=== PATIENT | female | born 1955 | race Caucasian/White ===

== ENCOUNTER → 2018-05-25 | Outpatient (CLI) | payer BC ==
[~2018-05-25] MED LIST: CEPH500 PO; CIPR500 PO; CYCL0.05OP; Cipro500 MG PO; ESTRTP VAG; FISH1000 PO; FURO40 PO; Flagyl500 MG PO; HYDACE5 PO; HYDR1TAB94 PO; HYDSUL200 PO; Ipratropium Bro15 ML; LEVFLO500 PO; LOSA50 PO; METO100 PO; NEBI10 PO; NEBI5 PO; NYST100SU PO; Norco 5-325 Ta1 EACH PO; OMEP40CA12 PO; ONDA4ODT MM; Omeprazole20 M1 PO; PILO5 PO; POTCHL20ER PO; PRAV20 PO; PRED10 PO; Prilosec Otc20 MG PO; RANI150 PO; SACC250C PO; SPIR25 PO; Synthroid100 MCG; TERA5 PO; TRAZ150T57 PO; VALS80 PO; VICODIN 5-3001 EACH PO; Zofran4 MG PO; Zofran8 MG PO
[2018-05-27 14:12] LABS: HPV 16 Negative (Negative); HPV 18 Negative (Negative); HPV OTHER HR TYPES Negative (Negative)
== END | disposition home or self-care (01) ==
LOC: LAB SHORT 13:33 → LAB 13:33
PROVIDERS: Obstetrics & Gynecology
DX: Z01.419 Encounter for gynecological examination (general) (routine) without abnormal findings (principal)
CPT/HCPCS: 87624; G0123

== ENCOUNTER 2018-12-09 16:00 | Emergency (ER) | payer BC ==
[~2018-12-09] VITALS: Ht 160 cm; Wt 233.0 kg
[~2018-12-09 16:00] MED LIST changes: +LEVSOD100 PO; -RANI150 PO; -Synthroid100 MCG; +Zantac150 MG PO
[2018-12-09 17:11] LABS: BASOPHILS ABSOLUTE AUTO 0.04 K/mm3 (0.00-0.23); BASOPHILS PERCENT AUTO 1 % (0-2); EOSINOPHILS ABSOLUTE AUTO 0.02 K/mm3 (0.00-0.68); EOSINOPHILS PERCENT AUTO 0 % (0-6); Hematocrit 41.7 % (33.0-51.0); Hemoglobin 13.6 g/dL (11.5-16.0); IMMATURE GRAN ABSOLUTE AUTO 0.02 K/mm3 (0.00-0.10); IMMATURE GRAN PERCENT AUTO 0 % (0-1); LYMPHOCYTES ABSOLUTE AUTO 0.96 K/mm3 (0.84-5.20); LYMPHOCYTES PERCENT AUTO 11 % (21-46); MONOCYTES ABSOLUTE AUTO 0.36 K/mm3 (0.16-1.47); MONOCYTES PERCENT AUTO 4 % (4-13); Mean Corpuscular HGB 31.9 pg (26.0-34.0); Mean Corpuscular HGB Conc 32.6 g/dL (31.5-36.5); Mean Corpuscular Volume 98 fL (80-100); Mean Platelet Volume 10.6 fL (9.1-12.4); NEUTROPHILS ABSOLUTE AUTO 7.38 K/mm3 (1.96-9.15); NEUTROPHILS PERCENT AUTO 84 % (41-73); Platelet Count 249 K/mm3 (150-400); RDW Coefficient Variation 12.1 % (11.7-14.2); RDW Standard Deviation 44.3 fL (35.1-46.3); Red Blood Cell Count 4.26 M/mm3 (3.80-5.20); White Blood Cell Count 8.78 K/mm3 (4.00-11.30)
[2018-12-09 17:40] LABS: Albumin, Blood 3.8 g/dL (3.4-5.0); Albumin/Globulin Ratio 1.2 (0.8-1.8); Bilirubin, Total 0.2 mg/dL (0.1-1.0); Bun/Creatinine Ratio 17.6 (12.0-20.0); Creatinine, Blood 1.02 mg/dL (0.40-1.00); Globulin, Blood 3.3 g/dL (2.2-4.0); Potassium, Blood 4.3 mmol/L (3.5-5.5); Total Protein, Blood 7.1 g/dL (6.4-8.2)
[2018-12-09] MEDS ORDERED: HYDSUL200 PO (19:50)
[2018-12-09] MEDS ORDERED: Prilosec Otc20 MG PO (19:51)
[2018-12-09] MEDS ORDERED: Spironolactone25 MG PO (19:53)
[2018-12-09] MEDS ORDERED: Norco 5-325 Ta1 EACH PO (19:53)
[2018-12-09] MEDS ORDERED: NEBI10 PO (19:54)
[2018-12-09] MEDS ORDERED: IRBE150 PO (19:56)
[2018-12-09] MEDS ORDERED: THERA1 EACH PO (19:57)
[2018-12-09] MEDS ORDERED: VITAMIN D-32000 UNIT PO (19:57)
[2018-12-09] MEDS ORDERED: BIOTIN2500 MCG PO (19:57)
== END 2018-12-09 21:00 | disposition home or self-care (01) ==
LOC: ER 16:00
PROVIDERS: Physician Assistant
DX: R51 Headache (principal); I10 Essential (primary) hypertension; Z88.6 Allergy status to analgesic agent; Z88.1 Allergy status to other antibiotic agents; Z88.5 Allergy status to narcotic agent; Z88.8 Allergy status to other drugs, medicaments and biological substances; Z79.52 Long term (current) use of systemic steroids; Z79.899 Other long term (current) drug therapy
CPT/HCPCS: 36415; 70450; 80053; 85025; 96374; 96375; 99284-25; J1200; J1885; J2765

== ENCOUNTER 2018-12-17 11:46 | Emergency (ER) | payer BC ==
[~2018-12-17] VITALS: Ht 160 cm; Wt 104.3 kg
[~2018-12-17 11:46] MED LIST changes: +BIOTIN2500 MCG PO; +IRBE150 PO; +Spironolactone25 MG PO; +THERA1 EACH PO; +VITAMIN D-32000 UNIT PO
== END 2018-12-17 16:00 | disposition home or self-care (01) ==
LOC: ER 11:46
DX: R51 Headache (principal); Z88.6 Allergy status to analgesic agent; Z88.8 Allergy status to other drugs, medicaments and biological substances; Z88.1 Allergy status to other antibiotic agents; Z88.5 Allergy status to narcotic agent; Z79.899 Other long term (current) drug therapy; Z79.52 Long term (current) use of systemic steroids; I10 Essential (primary) hypertension
CPT/HCPCS: 70487; 70496; 82565; 99284-25; Q9967

== ENCOUNTER 2019-01-14 15:31 | Emergency (ER) | payer BC ==
[~2019-01-14] VITALS: Ht 160 cm; Wt 104.3 kg
[2019-01-14] MEDS ORDERED: DIVIGEL1 EACH TD (15:48)
[2019-01-14] MEDS ORDERED: PANT40 PO (15:49)
[2019-01-14 16:01] LABS: BASOPHILS ABSOLUTE AUTO 0.03 K/mm3 (0.00-0.23); BASOPHILS PERCENT AUTO 0 % (0-2); EOSINOPHILS ABSOLUTE AUTO 0.07 K/mm3 (0.00-0.68); EOSINOPHILS PERCENT AUTO 1 % (0-6); Hemoglobin 13.4 g/dL (11.5-16.0); IMMATURE GRAN ABSOLUTE AUTO 0.05 K/mm3 (0.00-0.10); IMMATURE GRAN PERCENT AUTO 1 % (0-1); LYMPHOCYTES ABSOLUTE AUTO 1.86 K/mm3 (0.84-5.20); LYMPHOCYTES PERCENT AUTO 21 % (21-46); MONOCYTES ABSOLUTE AUTO 0.79 K/mm3 (0.16-1.47); MONOCYTES PERCENT AUTO 9 % (4-13); Mean Corpuscular HGB 32.3 pg (26.0-34.0); Mean Corpuscular HGB Conc 32.7 g/dL (31.5-36.5); Mean Corpuscular Volume 99 fL (80-100); Mean Platelet Volume 11.1 fL (9.1-12.4); NEUTROPHILS ABSOLUTE AUTO 6.11 K/mm3 (1.96-9.15); NEUTROPHILS PERCENT AUTO 69 % (41-73); Platelet Count 221 K/mm3 (150-400); RDW Coefficient Variation 11.9 % (11.7-14.2); RDW Standard Deviation 43.2 fL (35.1-46.3); Red Blood Cell Count 4.15 M/mm3 (3.80-5.20); White Blood Cell Count 8.91 K/mm3 (4.00-11.30)
[2019-01-14 16:18] LABS: Alanine Aminotransfer (ALT/SGP 41 U/L (12-78); Albumin, Blood 3.4 g/dL (3.4-5.0); Alk Phos 92 U/L (50-136); Anion Gap 5 mmol/L (6-16); Aspartate Aminotrans (AST/SGOT 24 U/L (12-37); Bilirubin, Total 0.2 mg/dL (0.1-1.0); Blood Urea Nitrogen 17 mg/dL (8-24); Bun/Creatinine Ratio 18.9 (12.0-20.0); CO2, Blood 32 mmol/L (21-32); Calcium, Blood 8.4 mg/dL (8.5-10.1); Chloride, Blood 99 mmol/L (98-108); Globulin, Blood 3.4 g/dL (2.2-4.0); Glomerular Filtration Rate >60 (60-); Glucose, Blood 137 mg/dL (70-99); Potassium, Blood 3.9 mmol/L (3.5-5.5); Sodium, Blood 136 mmol/L (136-145); Total Protein, Blood 6.8 g/dL (6.4-8.2); Troponin I <0.015 ng/mL (0.000-0.040)
[2019-01-14] MEDS ORDERED: Bactrim Ds Tab1 EACH PO (19:20)
== END 2019-01-14 19:36 | disposition home or self-care (01) ==
LOC: ER 15:31
PROVIDERS: Physician Assistant
DX: J18.1 Lobar pneumonia, unspecified organism (principal); R07.2 Precordial pain; R11.2 Nausea with vomiting, unspecified; I10 Essential (primary) hypertension; Z88.8 Allergy status to other drugs, medicaments and biological substances; Z88.1 Allergy status to other antibiotic agents; Z88.5 Allergy status to narcotic agent; Z79.52 Long term (current) use of systemic steroids; Z79.899 Other long term (current) drug therapy
CPT/HCPCS: 36415; 71046; 80053; 83690; 84484; 85025; 93005; 93010; 96361; 96374; 96375; 99285-25; J1200; J1885; J2405; J2765; J7030

== ENCOUNTER 2019-09-30 16:54 | Inpatient (IN) | payer BC ==
[~2019-09-30] VITALS: Ht 160 cm; Wt 100.2 kg
[~2019-09-30 16:54] MED LIST changes: -BIOTIN5 MG PO; -CALCIUM 600-D31 EACH PO; -FURO40 PO; -Gummi Bear Mul1 EACH PO; -IRBE150 PO; -Ipratropium Bro15 ML; -LEVSOD100 PO; -LOPE2C PO; -PANT40 PO; -POTCHL20ER PO; -Prednisone10 MG PO; -Spironolactone25 MG PO; -TRAZ150T57 PO
[2019-09-30 18:04] LABS: Source, Urine Clean Catch
[2019-09-30 18:09] LABS: Bilirubin, Urine Neg (Neg); Blood, Urine 2+ (Neg); Glucose Qualitative, Urine Neg (Neg); Ketones, Urine 3+ (Neg); Leukocyte Esterase, Urine Neg (Neg); Nitrite, Urine Neg (Neg); Protein, Urine 1+ (Neg); Urobilinogen, Urine 2+ (Normal)
[2019-09-30 18:20] LABS: Appearance, Urine Hazy (Clear); Color, Urine Amber (P-Yellow)
[2019-09-30 18:22] LABS: Bacteria Few /hpf; Red Blood Cells, Urine 0-2 /hpf (0-2); Squamous Epithelial Cells Mod /hpf (Few); White Blood Cells, Urine 0-2 /hpf (0-5)
[2019-09-30] MEDS ORDERED: Norco 5-325 Ta1 EACH PO (19:01)
[2019-09-30] MEDS ORDERED: HYDSUL200 PO (19:03)
[2019-09-30] MEDS ORDERED: Prednisone10 MG PO (19:03)
[2019-09-30] MEDS ORDERED: TRAZ150T57 PO (19:03)
[2019-09-30] MEDS ORDERED: LEVSOD100 PO (19:03)
[2019-09-30] MEDS ORDERED: IRBE150 PO (19:05)
[2019-09-30] MEDS ORDERED: PANT40 PO (19:05)
[2019-09-30] MEDS ORDERED: Ipratropium Bro15 ML (19:08)
[2019-09-30] MEDS ORDERED: POTCHL20ER PO (19:08)
[2019-09-30] MEDS ORDERED: Spironolactone25 MG PO (19:09)
[2019-09-30] MEDS ORDERED: FURO40 PO (19:25)
[2019-09-30] MEDS ORDERED: NEBI10 PO (19:26)
[2019-09-30] MEDS ORDERED: Gummi Bear Mul1 EACH PO (19:27)
[2019-09-30] MEDS ORDERED: CALCIUM 600-D31 EACH PO (19:32)
[2019-09-30] MEDS ORDERED: LOPE2C PO (19:34)
[2019-09-30] MEDS ORDERED: BIOTIN5 MG PO (19:36)
[2019-10-01 05:02] LABS: BASOPHILS ABSOLUTE AUTO 0.03 K/mm3 (0.00-0.23); BASOPHILS PERCENT AUTO 0 % (0-2); EOSINOPHILS ABSOLUTE AUTO 0.06 K/mm3 (0.00-0.68); EOSINOPHILS PERCENT AUTO 1 % (0-6); Hematocrit 35.8 % (33.0-51.0); Hemoglobin 11.2 g/dL (11.5-16.0); IMMATURE GRAN ABSOLUTE AUTO 0.04 K/mm3 (0.00-0.10); IMMATURE GRAN PERCENT AUTO 0 % (0-1); LYMPHOCYTES ABSOLUTE AUTO 1.31 K/mm3 (0.84-5.20); LYMPHOCYTES PERCENT AUTO 12 % (21-46); MONOCYTES ABSOLUTE AUTO 1.23 K/mm3 (0.16-1.47); MONOCYTES PERCENT AUTO 12 % (4-13); Mean Corpuscular HGB 30.5 pg (26.0-34.0); Mean Corpuscular HGB Conc 31.3 g/dL (31.5-36.5); Mean Corpuscular Volume 98 fL (80-100); Mean Platelet Volume 11.3 fL (9.1-12.4); NEUTROPHILS ABSOLUTE AUTO 7.97 K/mm3 (1.96-9.15); NEUTROPHILS PERCENT AUTO 75 % (41-73); Platelet Count 217 K/mm3 (150-400); RDW Coefficient Variation 12.8 % (11.7-14.2); RDW Standard Deviation 46.4 fL (35.1-46.3); Red Blood Cell Count 3.67 M/mm3 (3.80-5.20); White Blood Cell Count 10.64 K/mm3 (4.00-11.30)
[2019-10-01 05:23] LABS: Anion Gap 7 mmol/L (6-16); Blood Urea Nitrogen 10 mg/dL (8-24); CO2, Blood 29 mmol/L (21-32); Calcium, Blood 8.1 mg/dL (8.5-10.1); Chloride, Blood 103 mmol/L (98-108); Creatinine, Blood 0.91 mg/dL (0.40-1.00); Glomerular Filtration Rate >60 (60-); Glucose, Blood 86 mg/dL (70-99); Potassium, Blood 3.7 mmol/L (3.5-5.5); Sodium, Blood 139 mmol/L (136-145)
--- NOTE | 2019-10-01 06:04 | NUR ---
SHIFT SUMMARY RECIEVED REPORT FROM TING CHEN, ED @ 2027. ARRIVED TO FLOOR VIA WHEELCHAIR @ 2042, NO ASSISTANCE NEEDED WITH TRANSFER/AMBULATION. ORIENTED TO ROOM AND CALL SYSTEM. A/O, ABLE TO MAKE NEEDS KNOWN. COOPERATIVE WITH CARE. ANSWERS QUESTIONS APPROPRIATELY. C/O PAIN RATED 8/10 TO LLQ; MEDICATED PER EMAR. STATES MINIMAL RELIEF WITH PAIN MEDICATIONS. IV FLUIDS STARTED TO LAC WITHOUT COMPLICATION OVERNIGHT; THIS AM FELT TENDERNESS. NEW 20G IV TO OUTER [place]. APPEARED TO REST OFF AN ON. CONT. BIOX PLACE; RT ALSO PLACED ON 2L VIA NC R/T DESATURATION WHILE SLEEPING. PATIENT STATED WAS TO HAVE A SLEEP STUDY DONE, BUT HAS NOT HAD TIME TO COMPLETE. REMAINED NPO. NO ACUTE CHANGES NOTED OVERNIGHT. BED IN LOWEST POSITION. CALL LIGHT AND BELONGINGS WITHIN REACH. WCTM. REPORT TO BRENNA CHEN.
--- NOTE | 2019-10-01 19:21 | NUR ---
SHIFT SUMMARY: NO ACUTE CHANGES TO REPORT THIS SHIFT. PT A&O; CALM AND COOPERATIVE WITH CARE; INDEPENDENT IN ROOM. MEDICATED FOR LLQ PAIN PER EMAR. MEDICATED FOR NAUSEA X1 THIS SHIFT. SURGICAL CONSULT (DR RAMIREZ) THIS SHIFT; DIET ADVANCED; NO SURGERY PLANNED. REHYDRATION & IV ABX CONTINUING. REPORT GIVEN TO ONCOMING RN.
--- NOTE | 2019-10-02 03:58 | NUR ---
SHIFT SUMMARY A/O, ABLE TO MAKE NEEDS KNOWN. COOPERATIVE WITH CARE. CALLS AND ANSWERS QUESTIONS APPROPRIATELY. C/O PAIN/DISCOMFORT TO LLQ; MEDICATED PER EMAR. INDEPENDENT TO ROOM AND HALLWAYS. APPEARED TO REST MUCH MORE THIS SHIFT THAN LAST. CONT BIOX AND O2 REMAINED IN PLACE NO DESATURATION NOTED. TOLERATING THIN LIQUIDS WITH ICE CHIPS OK. STATES CURIOUS WHEN HOME PO MEDICATIONS WILL BE AVAILABLE TO HER, SPECIFICALLY HTN MEDICATIONS; STATES SHE WILL SPEAK TO ATTENDING PHYSICIAN TODAY. NO ACUTE CHANGES NOTED OVERNIGHT. BED REMAINED IN LOWEST POSITION. CALL LIGHT AND BELONGINGS WITHIN REACH. WCTM. REPORT TO ONCOMING RN.
[2019-10-02 05:10] LABS: BASOPHILS ABSOLUTE AUTO 0.03 K/mm3 (0.00-0.23); BASOPHILS PERCENT AUTO 0 % (0-2); EOSINOPHILS ABSOLUTE AUTO 0.13 K/mm3 (0.00-0.68); EOSINOPHILS PERCENT AUTO 2 % (0-6); Hematocrit 37.7 % (33.0-51.0); Hemoglobin 11.9 g/dL (11.5-16.0); IMMATURE GRAN ABSOLUTE AUTO 0.03 K/mm3 (0.00-0.10); IMMATURE GRAN PERCENT AUTO 0 % (0-1); LYMPHOCYTES ABSOLUTE AUTO 1.52 K/mm3 (0.84-5.20); LYMPHOCYTES PERCENT AUTO 18 % (21-46); MONOCYTES ABSOLUTE AUTO 0.94 K/mm3 (0.16-1.47); MONOCYTES PERCENT AUTO 11 % (4-13); Mean Corpuscular HGB 30.9 pg (26.0-34.0); Mean Corpuscular HGB Conc 31.6 g/dL (31.5-36.5); Mean Corpuscular Volume 98 fL (80-100); Mean Platelet Volume 10.9 fL (9.1-12.4); NEUTROPHILS ABSOLUTE AUTO 5.82 K/mm3 (1.96-9.15); NEUTROPHILS PERCENT AUTO 69 % (41-73); Platelet Count 247 K/mm3 (150-400); RDW Coefficient Variation 12.4 % (11.7-14.2); Red Blood Cell Count 3.85 M/mm3 (3.80-5.20); White Blood Cell Count 8.47 K/mm3 (4.00-11.30)
[2019-10-02 05:30] LABS: Albumin, Blood 2.8 g/dL (3.4-5.0); Anion Gap 7 mmol/L (6-16); Blood Urea Nitrogen 11 mg/dL (8-24); Bun/Creatinine Ratio 11.9 (12.0-20.0); CO2, Blood 30 mmol/L (21-32); Calcium, Blood 8.3 mg/dL (8.5-10.1); Chloride, Blood 103 mmol/L (98-108); Creatinine, Blood 0.93 mg/dL (0.40-1.00); Glomerular Filtration Rate >60 (60-); Glucose, Blood 93 mg/dL (70-99); Phosphorus, Blood 3.2 mg/dL (2.5-4.9); Potassium, Blood 3.7 mmol/L (3.5-5.5); Sodium, Blood 140 mmol/L (136-145)
--- NOTE | 2019-10-02 16:04 | NUR ---
Provided theraputic listening, gentle counseling program leader and prayer to Sharon. She expressed appreciation. I will continue to provide emotional/spiritual support in coming days.
--- NOTE | 2019-10-02 17:40 | NUR ---
SUMMARY PT SITTING UP IN BED WATCHING TV, PT HAS BEEN PLEASANT AND COOPERATIVE WITH CARE, INDEPENDENT IN THE ROOM, PT MED PER EMAR FOR PAIN AND NAUSEA, CONT BIOX IN PLACE AND OXYGEN PRN, BOWEL SOUNDS HYPERACTIVE AND PT WITH POOR APPETITE, VSS, WILL CONT TO MONITOR
--- NOTE | 2019-10-03 04:00 | NUR ---
SHIFT SUMMARY PT HAS HAD NO ACUTE CHANGES THIS SHIFT, MEDICATED PER MAR FOR PAIN & NAUSEA, PT HAS BEEN AMBULATING IN HALLWAY INDEP, SLEEPING AT THIS TIME, CALL LIGHT IN REACH, WILL CONT TO MONITOR UNTIL REPORT GIVEN TO DAY RN.
[2019-10-03 08:08] LABS: BASOPHILS ABSOLUTE AUTO 0.04 K/mm3 (0.00-0.23); BASOPHILS PERCENT AUTO 1 % (0-2); EOSINOPHILS ABSOLUTE AUTO 0.18 K/mm3 (0.00-0.68); EOSINOPHILS PERCENT AUTO 2 % (0-6); Hematocrit 34.9 % (33.0-51.0); IMMATURE GRAN ABSOLUTE AUTO 0.02 K/mm3 (0.00-0.10); IMMATURE GRAN PERCENT AUTO 0 % (0-1); LYMPHOCYTES ABSOLUTE AUTO 1.28 K/mm3 (0.84-5.20); LYMPHOCYTES PERCENT AUTO 16 % (21-46); MONOCYTES ABSOLUTE AUTO 0.92 K/mm3 (0.16-1.47); MONOCYTES PERCENT AUTO 12 % (4-13); Mean Corpuscular HGB Conc 31.5 g/dL (31.5-36.5); Mean Corpuscular Volume 98 fL (80-100); Mean Platelet Volume 10.9 fL (9.1-12.4); NEUTROPHILS ABSOLUTE AUTO 5.56 K/mm3 (1.96-9.15); NEUTROPHILS PERCENT AUTO 69 % (41-73); Platelet Count 243 K/mm3 (150-400); RDW Coefficient Variation 12.3 % (11.7-14.2); RDW Standard Deviation 44.9 fL (35.1-46.3); Red Blood Cell Count 3.55 M/mm3 (3.80-5.20)
[2019-10-03 08:26] LABS: Albumin, Blood 2.8 g/dL (3.4-5.0); Anion Gap 5 mmol/L (6-16); Blood Urea Nitrogen 8 mg/dL (8-24); CO2, Blood 32 mmol/L (21-32); Calcium, Blood 8.4 mg/dL (8.5-10.1); Chloride, Blood 102 mmol/L (98-108); Glomerular Filtration Rate 59 (60-); Glucose, Blood 95 mg/dL (70-99); Phosphorus, Blood 3.1 mg/dL (2.5-4.9); Potassium, Blood 3.3 mmol/L (3.5-5.5); Sodium, Blood 139 mmol/L (136-145)
--- NOTE | 2019-10-03 12:30 | NUR ---
ASSUMED CARE OF PT. INDEPENDENT IN HALLWAYS. FALLING ASLEEP WHEN HANGING ANTIBIOTIC.
--- NOTE | 2019-10-03 15:43 | NUR ---
Sharon is awaitingf scan results and admits she is anxious. Provided gentle milieu counselor, theraputic listening and emotional affirmation. I will remain available.
--- NOTE | 2019-10-03 17:36 | NUR ---
SHIFT SUMMARY PT OUT WALKING FOR SHORT TIME THIS AFTERNOON. MEDICATED FOR PAIN ONCE. TOOK A SHOWER AFTER A NAP. HAD A LRG DIARRHEA STOOL THIS AFTERNOON. REPORTS ABDOMEN REMAINS DISTENDED. TAKING SIPS OF FLUIDS WHICH DR. RAMIREZ IS AWARE ACCORDING TO PT.
[2019-10-04 05:01] LABS: BASOPHILS ABSOLUTE AUTO 0.03 K/mm3 (0.00-0.23); BASOPHILS PERCENT AUTO 0 % (0-2); EOSINOPHILS ABSOLUTE AUTO 0.18 K/mm3 (0.00-0.68); EOSINOPHILS PERCENT AUTO 3 % (0-6); Hematocrit 33.6 % (33.0-51.0); Hemoglobin 10.7 g/dL (11.5-16.0); IMMATURE GRAN ABSOLUTE AUTO 0.01 K/mm3 (0.00-0.10); IMMATURE GRAN PERCENT AUTO 0 % (0-1); LYMPHOCYTES PERCENT AUTO 20 % (21-46); MONOCYTES ABSOLUTE AUTO 1.05 K/mm3 (0.16-1.47); MONOCYTES PERCENT AUTO 15 % (4-13); Mean Corpuscular HGB Conc 31.8 g/dL (31.5-36.5); Mean Corpuscular Volume 97 fL (80-100); Mean Platelet Volume 11.2 fL (9.1-12.4); NEUTROPHILS ABSOLUTE AUTO 4.38 K/mm3 (1.96-9.15); NEUTROPHILS PERCENT AUTO 62 % (41-73); Platelet Count 228 K/mm3 (150-400); RDW Coefficient Variation 12.4 % (11.7-14.2); RDW Standard Deviation 44.6 fL (35.1-46.3); Red Blood Cell Count 3.45 M/mm3 (3.80-5.20); White Blood Cell Count 7.05 K/mm3 (4.00-11.30)
[2019-10-04 05:17] LABS: Albumin, Blood 2.7 g/dL (3.4-5.0); Anion Gap 6 mmol/L (6-16); Blood Urea Nitrogen 7 mg/dL (8-24); Bun/Creatinine Ratio 7.2 (12.0-20.0); CO2, Blood 32 mmol/L (21-32); Calcium, Blood 8.2 mg/dL (8.5-10.1); Chloride, Blood 103 mmol/L (98-108); Creatinine, Blood 0.98 mg/dL (0.40-1.00); Glomerular Filtration Rate >60 (60-); Glucose, Blood 90 mg/dL (70-99); Phosphorus, Blood 3.6 mg/dL (2.5-4.9); Potassium, Blood 3.6 mmol/L (3.5-5.5); Sodium, Blood 141 mmol/L (136-145)
--- NOTE | 2019-10-04 05:35 | NUR ---
SHIFT SUMMARY PT IS A 64 Y/O FEMALE, ADMITTED FOR DIVERTICULITIS. SHE IS A&O X 4, INDEPENDENT IN THE ROOM. SHE WAS MEDICATED X2 FOR PAIN WITH PRN IV DILAUDID. NO COMPLAINTS OF NAUSEA OR SOB. PT REMAINED ON 2L O2 VIA NC WHILE SLEEPING, AND SATS REMAINED > 90% ON O2. BP WAS ELEVATED AT START OF SHIFT AT 180/99, AND CAME DOWN TO 161/82 WITH SCHEDULED HS BP MED. AM BP WAS ALSO SLIGHTLY ELEVATED AT 174/90. ALL OTHER VITALS STABLE. PT SLEPT WELL THROUGH THE NIGHT. PT RECEIVING PO NYSTATIN FOR ORAL THRUSH. NO OTHER ACUTE CHANGES IN PT CONDITION NOTED. WILL CONTINUE TO MONITOR AND TREAT PER EMAR UNTIL HAND OFF TO DAY SHIFT RN.
--- NOTE | 2019-10-04 16:28 | NUR ---
Provided supportive visit and prayer.
--- NOTE | 2019-10-04 19:35 | NUR ---
ASSUMED CARE RECEIVED REPORT FROM DAY RN, ASSUMED CARE OF PT. RESTING COMFORTABLY AT THIS TIME, NO S/S ACUTE DISTRESS NOTED, RESPS EVEN AND UNLABORED. DENIES NEEDS AT THIS TIME. CALL LIGHT, POSSESSIONS IN REACH, BED IN LOWEST POSITION. WILL CONTINUE TO MONITOR.
--- NOTE | 2019-10-04 19:58 | NUR ---
Shift Summary A/Ox4, pleasant and cooperative with care. Patient had an episode of heart palpitations and was diaphoretic. EKG and tele was ordered, EKG was negative and Tele showed NSR @ 60's. Patient has been moved to room 329 from [facility] to improve telemetry signal. C/O lower abdominal pain, medicated x 3 with good results. Patient has been ambulatory in hallway and independently up in room to the bathroom. It seems patient desaturates with activities despite being on oxygen down to mid 70's; however, she rebounds quickly and maintains roughly 95% when resting. No other acute concerns.
[2019-10-05 05:31] LABS: BASOPHILS ABSOLUTE AUTO 0.05 K/mm3 (0.00-0.23); BASOPHILS PERCENT AUTO 1 % (0-2); EOSINOPHILS ABSOLUTE AUTO 0.19 K/mm3 (0.00-0.68); EOSINOPHILS PERCENT AUTO 2 % (0-6); Hematocrit 36.3 % (33.0-51.0); Hemoglobin 11.4 g/dL (11.5-16.0); IMMATURE GRAN ABSOLUTE AUTO 0.02 K/mm3 (0.00-0.10); IMMATURE GRAN PERCENT AUTO 0 % (0-1); LYMPHOCYTES ABSOLUTE AUTO 1.47 K/mm3 (0.84-5.20); LYMPHOCYTES PERCENT AUTO 18 % (21-46); MONOCYTES ABSOLUTE AUTO 1.15 K/mm3 (0.16-1.47); MONOCYTES PERCENT AUTO 14 % (4-13); Mean Corpuscular HGB 30.4 pg (26.0-34.0); Mean Corpuscular HGB Conc 31.4 g/dL (31.5-36.5); Mean Corpuscular Volume 97 fL (80-100); Mean Platelet Volume 10.9 fL (9.1-12.4); NEUTROPHILS ABSOLUTE AUTO 5.33 K/mm3 (1.96-9.15); NEUTROPHILS PERCENT AUTO 65 % (41-73); Platelet Count 246 K/mm3 (150-400); RDW Standard Deviation 42.8 fL (35.1-46.3); Red Blood Cell Count 3.75 M/mm3 (3.80-5.20); White Blood Cell Count 8.21 K/mm3 (4.00-11.30)
[2019-10-05 06:00] LABS: Anion Gap 6 mmol/L (6-16); Blood Urea Nitrogen 6 mg/dL (8-24); Bun/Creatinine Ratio 7.2 (12.0-20.0); CO2, Blood 31 mmol/L (21-32); Calcium, Blood 8.4 mg/dL (8.5-10.1); Chloride, Blood 104 mmol/L (98-108); Creatinine, Blood 0.83 mg/dL (0.40-1.00); Glomerular Filtration Rate >60 (60-); Glucose, Blood 94 mg/dL (70-99); Potassium, Blood 3.1 mmol/L (3.5-5.5); Sodium, Blood 141 mmol/L (136-145)
--- NOTE | 2019-10-05 06:47 | NUR ---
[address] MEDLEY REGARDING PT'S POTASSIUM LEVEL. ORDERS RECEIVED.
--- NOTE | 2019-10-05 07:28 | NUR ---
SHIFT SUMMARY PT HAS HAD AN UNEVENTFUL NIGHT. NO FURTHER EPISODES OF CP OR DIAPHORESIS NOTED, PT SLEPT ON AND OFF T/O NIGHT. PAIN MANAGED WITH REST AND MEDS. O2 SATS STABLE ON 2L O2/NC, >92%. UP IN ROOM INDEPENDENTLY. VS STABLE. CALL LIGHT, POSSESSIONS IN REACH, BED IN LOWEST POSITION. PT HOPEFUL TO D/C HOME TODAY, IN [facility].
[2019-10-05] MEDS ORDERED: CIPR500 PO (14:03)
[2019-10-05] MEDS ORDERED: VISBIOME 112.51 EACH PO (14:03)
[2019-10-05] MEDS ORDERED: METR500 PO (14:04)
[2019-10-05] MEDS ORDERED: ONDA4ODT MM (14:04)
[2019-10-05] MEDS ORDERED: NYST100000 SS (14:05)
--- NOTE | 2019-10-05 14:24 | NUR ---
1424 PT DISCHARGED HOME VIA PERSONAL VEHICLE ACCOMPANIED AND DRIVEN BY DAUGHTER. PT ESCORTED TO ENTRANCE BY TELEMETRY RN, PT REQUESTED TO SELF AMBULATE. IV REMOVED. D/C INSTRUCTIONS REVIEWED WITH PT AND COPY PROVIDED. NEW RX FAXED TO [facility] PER PT REQUEST. PT CONTINUES WITH SEVERAL LOOSE STOOLS DURING THE SHIFT. NO NEW CHANGES OR CONCERNS.
== END 2019-10-05 14:23 | disposition home or self-care (01) | DRG 871 ==
LOC: ER 16:54 → MEDS 20:24 → ENPENDDIS 10-05 13:10 → MEDS 10-05 14:23
PROVIDERS: Family Medicine; Internal Medicine; Nurse Practitioner Acute Care; Physician Assistant; ADMIT Internal Medicine
DX: A41.9 Sepsis, unspecified organism (principal); J96.01 Acute respiratory failure with hypoxia; I50.31 Acute diastolic (congestive) heart failure; K57.20 Diverticulitis of large intestine with perforation and abscess without bleeding; B37.0 Candidal stomatitis; I11.0 Hypertensive heart disease with heart failure; E78.5 Hyperlipidemia, unspecified; E03.9 Hypothyroidism, unspecified; M32.9 Systemic lupus erythematosus, unspecified; M79.7 Fibromyalgia; M35.00 Sjogren syndrome, unspecified; K21.9 Gastro-esophageal reflux disease without esophagitis; D64.9 Anemia, unspecified; M06.9 Rheumatoid arthritis, unspecified; E66.9 Obesity, unspecified; Z68.39 Body mass index [BMI] 39.0-39.9, adult
CPT/HCPCS: 36415; 71046; 74177; 80048; 80069; 81001; 83605; 85025; 87040; 87493; 93005; 93010; 93306; 94762; 96365-59; 96375; 96376; 99285-25; A9270; J1170; J1940; J2405; J2543; J2765; J2920; J3480; J7050; J7120; J7512; Q9967

== ENCOUNTER → 2019-09-30 | Outpatient (CLI) | payer BC ==
[~2019-09-30] MED LIST changes: +BIOTIN5 MG PO; +Bactrim Ds Tab1 EACH PO; +CALCIUM 600-D31 EACH PO; +DIVIGEL1 EACH TD; +Gummi Bear Mul1 EACH PO; +LOPE2C PO; +PANT40 PO; -PRED10 PO; +Prednisone10 MG PO; -THERA1 EACH PO
[2019-09-30 15:25] LABS: BASOPHILS ABSOLUTE AUTO 0.02 K/mm3 (0.00-0.23); BASOPHILS PERCENT AUTO 0 % (0-2); EOSINOPHILS ABSOLUTE AUTO 0.01 K/mm3 (0.00-0.68); EOSINOPHILS PERCENT AUTO 0 % (0-6); Hematocrit 42.2 % (33.0-51.0); Hemoglobin 13.4 g/dL (11.5-16.0); IMMATURE GRAN ABSOLUTE AUTO 0.05 K/mm3 (0.00-0.10); IMMATURE GRAN PERCENT AUTO 0 % (0-1); LYMPHOCYTES ABSOLUTE AUTO 0.75 K/mm3 (0.84-5.20); LYMPHOCYTES PERCENT AUTO 5 % (21-46); MONOCYTES ABSOLUTE AUTO 1.22 K/mm3 (0.16-1.47); MONOCYTES PERCENT AUTO 8 % (4-13); Mean Corpuscular HGB 30.7 pg (26.0-34.0); Mean Corpuscular HGB Conc 31.8 g/dL (31.5-36.5); Mean Corpuscular Volume 97 fL (80-100); Mean Platelet Volume 11.6 fL (9.1-12.4); NEUTROPHILS ABSOLUTE AUTO 13.02 K/mm3 (1.96-9.15); NEUTROPHILS PERCENT AUTO 86 % (41-73); Platelet Count 268 K/mm3 (150-400); RDW Coefficient Variation 12.8 % (11.7-14.2); RDW Standard Deviation 45.9 fL (35.1-46.3); Red Blood Cell Count 4.37 M/mm3 (3.80-5.20); White Blood Cell Count 15.07 K/mm3 (4.00-11.30)
[2019-09-30 15:42] LABS: Alanine Aminotransfer (ALT/SGP 23 U/L (12-78); Albumin, Blood 3.4 g/dL (3.4-5.0); Albumin/Globulin Ratio 0.9 (0.8-1.8); Alk Phos 71 U/L (50-136); Anion Gap 6 mmol/L (6-16); Aspartate Aminotrans (AST/SGOT 15 U/L (12-37); Bilirubin, Total 0.6 mg/dL (0.1-1.0); Blood Urea Nitrogen 11 mg/dL (8-24); Bun/Creatinine Ratio 11.4 (12.0-20.0); CO2, Blood 30 mmol/L (21-32); Calcium, Blood 8.5 mg/dL (8.5-10.1); Chloride, Blood 100 mmol/L (98-108); Creatinine, Blood 0.97 mg/dL (0.40-1.00); Globulin, Blood 3.7 g/dL (2.2-4.0); Glomerular Filtration Rate >60 (60-); Glucose, Blood 112 mg/dL (70-99); Potassium, Blood 3.8 mmol/L (3.5-5.5); Sodium, Blood 136 mmol/L (136-145); Total Protein, Blood 7.1 g/dL (6.4-8.2)
== END | disposition home or self-care (01) ==
LOC: LAB 13:34 → LAB SHORT 13:34
PROVIDERS: Nurse Practitioner Family
DX: R10.9 Unspecified abdominal pain (principal)
CPT/HCPCS: 80053; 83690; 85025

== ENCOUNTER 2019-12-22 20:11 | Observation (INO) | payer OTHER, BC ==
[~2019-12-22] VITALS: Ht 160 cm; Wt 100.2 kg
[~2019-12-22 20:11] MED LIST changes: +BIOTIN5 MG PO; +CALCIUM 600-D31 EACH PO; +FURO40 PO; +Gummi Bear Mul1 EACH PO; +IRBE150 PO; +Ipratropium Bro15 ML; +LEVSOD100 PO; +LOPE2C PO; +METR500 PO; +NYST100000 SS; +PANT40 PO; +POTCHL20ER PO; +Prednisone10 MG PO; +SPIR25; +TRAZ150T57 PO; +VISBIOME 112.51 EACH PO
[2019-12-22 20:57] LABS: BASOPHILS ABSOLUTE AUTO 0.04 K/mm3 (0.00-0.23); BASOPHILS PERCENT AUTO 0 % (0-2); EOSINOPHILS ABSOLUTE AUTO 0.03 K/mm3 (0.00-0.68); EOSINOPHILS PERCENT AUTO 0 % (0-6); Hematocrit 39.8 % (33.0-51.0); Hemoglobin 12.8 g/dL (11.5-16.0); IMMATURE GRAN ABSOLUTE AUTO 0.35 K/mm3 (0.00-0.10); IMMATURE GRAN PERCENT AUTO 2 % (0-1); LYMPHOCYTES ABSOLUTE AUTO 1.95 K/mm3 (0.84-5.20); LYMPHOCYTES PERCENT AUTO 13 % (21-46); MONOCYTES ABSOLUTE AUTO 1.07 K/mm3 (0.16-1.47); MONOCYTES PERCENT AUTO 7 % (4-13); Mean Corpuscular HGB 30.5 pg (26.0-34.0); Mean Corpuscular HGB Conc 32.2 g/dL (31.5-36.5); Mean Corpuscular Volume 95 fL (80-100); Mean Platelet Volume 10.7 fL (9.1-12.4); NEUTROPHILS ABSOLUTE AUTO 12.15 K/mm3 (1.96-9.15); NEUTROPHILS PERCENT AUTO 78 % (41-73); Platelet Count 259 K/mm3 (150-400); RDW Coefficient Variation 14.1 % (11.7-14.2); RDW Standard Deviation 49.3 fL (35.1-46.3); Red Blood Cell Count 4.19 M/mm3 (3.80-5.20); White Blood Cell Count 15.59 K/mm3 (4.00-11.30)
[2019-12-22 21:23] LABS: Albumin, Blood 3.3 g/dL (3.4-5.0); Albumin/Globulin Ratio 1.1 (0.8-1.8); Bilirubin, Total 0.2 mg/dL (0.1-1.0); Bun/Creatinine Ratio 24.8 (12.0-20.0); Calcium, Blood 8.2 mg/dL (8.5-10.1); Creatinine, Blood 1.05 mg/dL (0.40-1.00); Globulin, Blood 3.1 g/dL (2.2-4.0); Potassium, Blood 3.8 mmol/L (3.5-5.5); Total Protein, Blood 6.4 g/dL (6.4-8.2)
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
[2019-12-23] MEDS ORDERED: K-TAB ER20 ME2 PO (10:08)
--- NOTE | 2019-12-23 10:15 | NUR ---
PT FITTED W/ TLSO BRACE BY YARY, TOLERATED WELL, ABLE TO SIT UP ON EDGE OF BED, REPORTS IMPROVEMENT IN BACK PAIN AFTER BRACE WAS PLACED, PT ABLE TO USE BSC, C/O SPASMS ON BACK, PT STARTED ON FLEXERIL PER DR. RAMIREZ, DENIES ANY NUMBNESS OR TINGING, STANDBY ASSIST TO THE BSC, CONT. TO MONITOR FOR ANY CHANGES.
[2019-12-23] MEDS ORDERED: FLUC150A PO (10:28)
--- NOTE | 2019-12-23 15:06 | NUR ---
OOB TO RECLINER CHAIR, WORKING WITH PHYS. TX. MEDICATED FOR PAIN PRIOR TO THERAPY, REPORTS HAVING BETTER PAIN CONTROL WITH NORCO Q4HRS PRN AND FLEXERIL.
--- NOTE | 2019-12-23 18:10 | NUR ---
REPORTS PAIN IS BETTER WITH NORCO AND FLEXERIL, AMBULATES TO THE BATHROOM WITH TLSO BRACE ON AND WALKER, TOELRATING WELL, WORKED WITH PT TODAY, DENIES ANY NUMBNESS AND TINGLING, NO ACUTE CHANGES THIS SHIFT.
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
--- NOTE | 2019-12-24 09:01 | NUR ---
OOB WITH STANDBY ASSIST, TLSO BRACE IN PLACE, PT MOVING BETTER TODAY, RATES PAIN AT 7/10 ON BACK AND R SHOULDER/CHEST AREA, REPORTS HAVING ADEQUATE PAIN CONTROL, DENIES ANY NUMBNESS OR TINGLING OR ANY NEURO CHANGES, DENIES ANY SOB, MONITOR FOR ANY CHANGES, MEDICATE FOR PAIN PRN, ENCOURAGE DEEP BREATHING AND IS USE.
[2019-12-24] MEDS ORDERED: CYCL10 PO (12:02)
[2019-12-24] MEDS ORDERED: HYDR1TAB94 PO (12:03)
--- NOTE | 2019-12-24 12:42 | NUR ---
DC'D HOME, DC INSTRUCTIONS GIVEN, VERBALIZED UNDERSTANDING, PT DC'D W/ DAUGHTER, RX'S GIVEN.
== END 2019-12-24 12:41 | disposition home or self-care (01) ==
LOC: ER 20:11 → SURS 20:12 → ER 23:21 → SURS 23:25
PROVIDERS: Emergency Medicine; ADMIT Surgery
DX: S32.029A Unspecified fracture of second lumbar vertebra, initial encounter for closed fracture (principal); S01.81XA Laceration without foreign body of other part of head, initial encounter; M32.9 Systemic lupus erythematosus, unspecified; I10 Essential (primary) hypertension; E03.9 Hypothyroidism, unspecified; M35.00 Sjogren syndrome, unspecified; M79.7 Fibromyalgia; E66.9 Obesity, unspecified; K21.9 Gastro-esophageal reflux disease without esophagitis; M06.9 Rheumatoid arthritis, unspecified; R40.2412 Glasgow coma scale score 13-15, at arrival to emergency department; V49.9XXA Car occupant (driver) (passenger) injured in unspecified traffic accident, initial encounter; Z88.6 Allergy status to analgesic agent; Z88.1 Allergy status to other antibiotic agents; Z88.5 Allergy status to narcotic agent; Z88.8 Allergy status to other drugs, medicaments and biological substances; Z68.39 Body mass index [BMI] 39.0-39.9, adult
CPT/HCPCS: 12011; 36415; 70450; 71260; 72100; 72125; 73030; 73140; 74177; 80053; 85025; 96372; 97110; 97162; 99285-25; A9270; A9270-GY; G0378; J1650; J3010; J7512; Q9967

== ENCOUNTER 2020-09-06 06:21 | Day surgery (SDC) | payer BC ==
[~2020-09-06] VITALS: Ht 160 cm; Wt 103.0 kg
[~2020-09-06 06:21] MED LIST changes: +AZIT500 PO; +Amoxicillin500 MG PO; +CYCL10 PO; +ESOMEPRAZOLE MA40 MG PO; +FLUC150A PO; +Hydroxychloroq200 MG PO; +K-TAB ER20 ME2 PO; +PRED5 PO; -SPIR25; +VISBIOME PROBIOTIC PO
[2020-09-06] MEDS ORDERED: PANTOPRAZOLE SO40 M2 PO (07:05)
[2020-09-06] MEDS ORDERED: ESOMEPRAZOLE MA40 MG PO (07:05)
[2020-09-06] MEDS ORDERED: Hydroxychloroq200 MG PO (07:05)
[2020-09-06] MEDS ORDERED: ESTRADIOL0.5 MG PO (07:06)
== END 2020-09-06 10:35 | disposition home or self-care (01) ==
LOC: ORSCSDS 06:21
PROVIDERS: Podiatrist Foot & Ankle Surgery
PROC: 0QBL0ZZ Excision of Right Tarsal, Open Approach (ICD-10-PCS; principal; 2020-09-06 07:30)
PROC: 0QBN0ZZ Excision of Right Metatarsal, Open Approach (ICD-10-PCS; principal; 2020-09-06 07:30)
PROC: 0SGM04Z Fusion of Right Metatarsal-Phalangeal Joint with Internal Fixation Device, Open Approach (ICD-10-PCS; principal; 2020-09-06 07:30)
DX: M19.071 Primary osteoarthritis, right ankle and foot (principal); M20.5X1 Other deformities of toe(s) (acquired), right foot; I10 Essential (primary) hypertension; E78.5 Hyperlipidemia, unspecified; J44.9 Chronic obstructive pulmonary disease, unspecified; E03.9 Hypothyroidism, unspecified; K21.9 Gastro-esophageal reflux disease without esophagitis; E66.01 Morbid (severe) obesity due to excess calories; Z68.41 Body mass index [BMI] 40.0-44.9, adult; Z79.899 Other long term (current) drug therapy
CPT/HCPCS: C1713; J0171; J0690; J1100; J2250; J2405; J2704; J2765; J3010; J7120

== ENCOUNTER 2020-12-16 18:39 | Emergency (ER) | payer BC, MEDICARE, OTHER ==
[~2020-12-16] VITALS: Ht 160 cm; Wt 99.8 kg
[~2020-12-16 18:39] MED LIST changes: +ESTRADIOL0.5 MG PO; +PANTOPRAZOLE SO40 M2 PO
[2020-12-16 20:18] LABS: Source, Urine Clean Catch
[2020-12-16 20:21] LABS: Appearance, Urine Clear (Clear); Bilirubin, Urine Neg (Neg); Blood, Urine 1+ (Neg); Color, Urine Yellow (P-Yellow); Glucose Qualitative, Urine Neg (Neg); Ketones, Urine Neg (Neg); Leukocyte Esterase, Urine Neg (Neg); Nitrite, Urine Neg (Neg); Protein, Urine Neg (Neg); Specific Gravity, Urine 1.025 (1.003-1.022); Urobilinogen, Urine NORM (Normal)
[2020-12-16 20:29] LABS: Bacteria Not Seen /hpf; Red Blood Cells, Urine 0-2 /hpf (0-2); Squamous Epithelial Cells Rare /hpf (Few); White Blood Cells, Urine 0-2 /hpf (0-5)
[2020-12-16 20:32] LABS: BASOPHILS ABSOLUTE AUTO 0.03 K/mm3 (0.00-0.23); BASOPHILS PERCENT AUTO 0 % (0-2); EOSINOPHILS ABSOLUTE AUTO 0.01 K/mm3 (0.00-0.68); EOSINOPHILS PERCENT AUTO 0 % (0-6); Hematocrit 39.7 % (33.0-51.0); Hemoglobin 13.1 g/dL (11.5-16.0); IMMATURE GRAN ABSOLUTE AUTO 0.02 K/mm3 (0.00-0.10); IMMATURE GRAN PERCENT AUTO 0 % (0-1); LYMPHOCYTES ABSOLUTE AUTO 1.07 K/mm3 (0.84-5.20); LYMPHOCYTES PERCENT AUTO 14 % (21-46); MONOCYTES ABSOLUTE AUTO 0.49 K/mm3 (0.16-1.47); MONOCYTES PERCENT AUTO 6 % (4-13); Mean Corpuscular HGB 31.3 pg (26.0-34.0); Mean Corpuscular Volume 95 fL (80-100); Mean Platelet Volume 10.7 fL (9.1-12.4); NEUTROPHILS ABSOLUTE AUTO 6.14 K/mm3 (1.96-9.15); NEUTROPHILS PERCENT AUTO 79 % (41-73); Platelet Count 264 K/mm3 (150-400); RDW Coefficient Variation 12.3 % (11.7-14.2); RDW Standard Deviation 43.7 fL (35.1-46.3); Red Blood Cell Count 4.18 M/mm3 (3.80-5.20); White Blood Cell Count 7.76 K/mm3 (4.00-11.30)
[2020-12-16 20:51] LABS: Albumin, Blood 3.6 g/dL (3.4-5.0); Albumin/Globulin Ratio 1.1 (0.8-1.8); Bilirubin, Total 0.3 mg/dL (0.1-1.0); Bun/Creatinine Ratio 21.1 (12.0-20.0); Calcium, Blood 8.9 mg/dL (8.5-10.1); Creatinine, Blood 0.95 mg/dL (0.40-1.00); Globulin, Blood 3.2 g/dL (2.2-4.0); Potassium, Blood 4.3 mmol/L (3.5-5.5); Total Protein, Blood 6.8 g/dL (6.4-8.2)
[2020-12-16] MEDS ORDERED: CALCIUM 600 +1 EA11 PO (22:47)
[2020-12-16] MEDS ORDERED: Norco 5-325 Ta1 EACH PO (23:39)
== END 2020-12-17 00:08 | disposition home or self-care (01) ==
LOC: ER 18:39
PROVIDERS: Physician Assistant
DX: R10.84 Generalized abdominal pain (principal); I10 Essential (primary) hypertension; E78.5 Hyperlipidemia, unspecified; Z88.6 Allergy status to analgesic agent; Z88.8 Allergy status to other drugs, medicaments and biological substances; Z88.5 Allergy status to narcotic agent; Z79.899 Other long term (current) drug therapy; Z79.890 Hormone replacement therapy
CPT/HCPCS: 74176; 80053; 81001; 85025; 99284-25

== ENCOUNTER 2021-05-15 09:19 | Emergency (ER) | payer MEDICARE, OTHER ==
[~2021-05-15] VITALS: Ht 160 cm; Wt 95.2 kg
[~2021-05-15 09:19] MED LIST changes: +CALCIUM 600 +1 EA11 PO
[2021-05-15] MEDS ORDERED: HYDR1TAB94 PO (09:41)
[2021-05-15 10:05] LABS: BASOPHILS ABSOLUTE AUTO 0.05 K/mm3 (0.00-0.23); BASOPHILS PERCENT AUTO 1 % (0-2); EOSINOPHILS ABSOLUTE AUTO 0.08 K/mm3 (0.00-0.68); EOSINOPHILS PERCENT AUTO 1 % (0-6); Hematocrit 43.4 % (33.0-51.0); Hemoglobin 14.5 g/dL (11.5-16.0); IMMATURE GRAN ABSOLUTE AUTO 0.02 K/mm3 (0.00-0.10); IMMATURE GRAN PERCENT AUTO 0 % (0-1); LYMPHOCYTES PERCENT AUTO 10 % (21-46); MONOCYTES ABSOLUTE AUTO 0.66 K/mm3 (0.16-1.47); MONOCYTES PERCENT AUTO 9 % (4-13); Mean Corpuscular HGB 32.7 pg (26.0-34.0); Mean Corpuscular HGB Conc 33.4 g/dL (31.5-36.5); Mean Corpuscular Volume 98 fL (80-100); Mean Platelet Volume 10.4 fL (9.1-12.4); NEUTROPHILS ABSOLUTE AUTO 5.62 K/mm3 (1.96-9.15); NEUTROPHILS PERCENT AUTO 79 % (41-73); Platelet Count 239 K/mm3 (150-400); RDW Coefficient Variation 12.7 % (11.7-14.2); RDW Standard Deviation 45.6 fL (35.1-46.3); Red Blood Cell Count 4.44 M/mm3 (3.80-5.20); White Blood Cell Count 7.13 K/mm3 (4.00-11.30)
[2021-05-15 10:20] LABS: Alanine Aminotransfer (ALT/SGP 34 U/L (12-78); Albumin, Blood 3.4 g/dL (3.4-5.0); Albumin/Globulin Ratio 1.1 (0.8-1.8); Alk Phos 72 U/L (50-136); Anion Gap 8 mmol/L (6-16); Aspartate Aminotrans (AST/SGOT 35 U/L (12-37); Bilirubin, Total 0.3 mg/dL (0.1-1.0); Blood Urea Nitrogen 14 mg/dL (8-24); Bun/Creatinine Ratio 14.8 (12.0-20.0); CO2, Blood 25 mmol/L (21-32); Calcium, Blood 8.8 mg/dL (8.5-10.1); Chloride, Blood 104 mmol/L (98-108); Creatinine, Blood 0.94 mg/dL (0.40-1.00); Globulin, Blood 3.1 g/dL (2.2-4.0); Glomerular Filtration Rate 59 (60-); Glucose, Blood 97 mg/dL (70-99); Potassium, Blood 3.9 mmol/L (3.5-5.5); Sodium, Blood 137 mmol/L (136-145); Total Protein, Blood 6.5 g/dL (6.4-8.2); Troponin I <0.015 ng/mL (0.000-0.040)
[2021-05-15 11:41] LABS: Influenza A, PCR NEGATIVE (NEGATIVE); Influenza B, PCR NEGATIVE (NEGATIVE); SARS-Cov-2 (COVID-19) PCR, MMC NEGATIVE (NEGATIVE)
[2021-05-15 11:46] LABS: Resp Syncytial Virus, PCR POSITIVE (NEGATIVE)
[2021-05-15] MEDS ORDERED: ROBITUSSIN30 MG/5 M7 PO (12:23)
== END 2021-05-15 12:35 | disposition home or self-care (01) ==
LOC: ER 09:19
PROVIDERS: Emergency Medicine; Student in an Organized Health Care Education/Training Program
DX: J20.5 Acute bronchitis due to respiratory syncytial virus (principal); Z20.822 Contact with and (suspected) exposure to COVID-19; I10 Essential (primary) hypertension; Z88.6 Allergy status to analgesic agent; Z88.1 Allergy status to other antibiotic agents; Z88.5 Allergy status to narcotic agent; Z88.8 Allergy status to other drugs, medicaments and biological substances; Z79.899 Other long term (current) drug therapy; Z79.52 Long term (current) use of systemic steroids
CPT/HCPCS: 0241U; 36415; 71046; 80053; 84484; 85025; 93005; 93010; 99285-25; J7030

== ENCOUNTER 2022-03-01 23:53 | Inpatient (IN) | payer MEDICARE, OTHER ==
[~2022-03-01] VITALS: Ht 162.6 cm; Wt 91.1 kg
[~2022-03-01 23:53] MED LIST changes: +ROBITUSSIN30 MG/5 M7 PO
[2022-03-02 00:35] LABS: Albumin, Blood 2.9 g/dL (3.4-5.0); Albumin/Globulin Ratio 0.9 (0.8-1.8); Bilirubin, Total 0.4 mg/dL (0.1-1.0); Bun/Creatinine Ratio 13.4 (12.0-20.0); Calcium, Blood 7.9 mg/dL (8.5-10.1); Creatinine, Blood 0.75 mg/dL (0.40-1.00); Globulin, Blood 3.3 g/dL (2.2-4.0); Potassium, Blood 3.6 mmol/L (3.5-5.5); Total Protein, Blood 6.2 g/dL (6.4-8.2)
[2022-03-02] MEDS ORDERED: GABAPENTIN600 MG PO (00:39)
[2022-03-02 00:59] LABS: Influenza A, PCR NEGATIVE (NEGATIVE); Influenza B, PCR NEGATIVE (NEGATIVE); Resp Syncytial Virus, PCR NEGATIVE (NEGATIVE); SARS-Cov-2 (COVID-19) PCR, MMC NEGATIVE (NEGATIVE)
[2022-03-02 01:23] LABS: Source, Urine Clean Catch
[2022-03-02 01:33] LABS: Bilirubin, Urine Neg (Neg); Blood, Urine 1+ (Neg); Glucose Qualitative, Urine Neg (Neg); Ketones, Urine Neg (Neg); Leukocyte Esterase, Urine Neg (Neg); Nitrite, Urine Neg (Neg); Protein, Urine Neg (Neg); Urobilinogen, Urine NORM (Normal)
[2022-03-02 01:47] LABS: BASOPHILS ABSOLUTE AUTO 0.05 K/mm3 (0.00-0.23); BASOPHILS PERCENT AUTO 0 % (0-2); EOSINOPHILS PERCENT AUTO 3 % (0-6); Hematocrit 39.8 % (33.0-51.0); Hemoglobin 13.5 g/dL (11.5-16.0); IMMATURE GRAN ABSOLUTE AUTO 0.05 K/mm3 (0.00-0.10); IMMATURE GRAN PERCENT AUTO 0 % (0-1); LYMPHOCYTES ABSOLUTE AUTO 1.01 K/mm3 (0.84-5.20); LYMPHOCYTES PERCENT AUTO 8 % (21-46); MONOCYTES ABSOLUTE AUTO 1.03 K/mm3 (0.16-1.47); MONOCYTES PERCENT AUTO 9 % (4-13); Mean Corpuscular HGB 31.8 pg (26.0-34.0); Mean Corpuscular HGB Conc 33.9 g/dL (31.5-36.5); Mean Corpuscular Volume 94 fL (80-100); NEUTROPHILS ABSOLUTE AUTO 9.49 K/mm3 (1.96-9.15); NEUTROPHILS PERCENT AUTO 79 % (41-73); RDW Coefficient Variation 12.6 % (11.7-14.2); RDW Standard Deviation 43.2 fL (35.1-46.3); Red Blood Cell Count 4.25 M/mm3 (3.80-5.20); White Blood Cell Count 12.03 K/mm3 (4.00-11.30)
[2022-03-02 01:55] LABS: Appearance, Urine Clear (Clear); Color, Urine Yellow (P-Yellow)
[2022-03-02 01:56] LABS: Bacteria Not Seen /hpf; Red Blood Cells, Urine 0-2 /hpf (0-2); Squamous Epithelial Cells Not Seen /hpf (Few); White Blood Cells, Urine Not Seen /hpf (0-5)
[2022-03-02 02:01] LABS: Mean Platelet Volume 10.7 fL (9.1-12.4); Platelet Count 202 K/mm3 (150-400)
--- NOTE | 2022-03-02 04:08 | NUR ---
RECEIVED REPORT FROM ANN MARIE LAN RN. PT ARRIVED TO RM 305 VIA GURNEY AND TRANSFERRED BY SLIDER SHEET TO BED AT 0405. ON 2L VIA [place]. WILL PROVIDE CARE T/O SHIFT.
--- NOTE | 2022-03-02 05:04 | NUR ---
SHIFT SUMMARY: ER ADMIT AT 0404. A/O. SBA TO 1PA. STATES WEAKNESS IN LEGS. MEDICATED WITH ONE NORCO FOR 7/10 BACK AND HEADACHE, PT RESTED WELL. CURRENTLY ON 2L VIA NC, BASELINE IS RA. DESATS. PT USING INCENTIVE SPIROMETER AT BEDSIDE. LS ARE DIMINISHED WITH CRACKLES IN BASES. SINUS RHYTHM ON TELE AT 63, SCD'S FOR DVT PROPHYLAXIS. BED ALARM ON FOR PT SAFETY. NS AT 150 MLS/HR X 2 BAGS, FIRST BAG INFUSING WITHOUT DIFFICULTY TO LEFT HAND. WILL CONTINUE TO PROVIDE CARE UNTIL SHIFT REPORT. CALL LT IN REACH.
[2022-03-02 05:19] LABS: BASOPHILS ABSOLUTE AUTO 0.05 K/mm3 (0.00-0.23); BASOPHILS PERCENT AUTO 1 % (0-2); EOSINOPHILS ABSOLUTE AUTO 0.37 K/mm3 (0.00-0.68); EOSINOPHILS PERCENT AUTO 4 % (0-6); Hematocrit 37.6 % (33.0-51.0); Hemoglobin 12.6 g/dL (11.5-16.0); IMMATURE GRAN ABSOLUTE AUTO 0.03 K/mm3 (0.00-0.10); IMMATURE GRAN PERCENT AUTO 0 % (0-1); LYMPHOCYTES PERCENT AUTO 11 % (21-46); MONOCYTES ABSOLUTE AUTO 1.17 K/mm3 (0.16-1.47); MONOCYTES PERCENT AUTO 12 % (4-13); Mean Corpuscular HGB 31.1 pg (26.0-34.0); Mean Corpuscular HGB Conc 33.5 g/dL (31.5-36.5); Mean Corpuscular Volume 93 fL (80-100); Mean Platelet Volume 10.8 fL (9.1-12.4); NEUTROPHILS ABSOLUTE AUTO 7.02 K/mm3 (1.96-9.15); Platelet Count 206 K/mm3 (150-400); RDW Coefficient Variation 12.6 % (11.7-14.2); RDW Standard Deviation 43.6 fL (35.1-46.3); Red Blood Cell Count 4.05 M/mm3 (3.80-5.20); White Blood Cell Count 9.74 K/mm3 (4.00-11.30)
[2022-03-02 05:32] LABS: NEUTROPHILS PERCENT AUTO 7 % (41-73)
[2022-03-02 05:40] LABS: Bun/Creatinine Ratio 11.2 (12.0-20.0); Creatinine, Blood 0.9 mg/dL (0.40-1.00); Potassium, Blood 3.2 mmol/L (3.5-5.5)
--- NOTE | 2022-03-02 18:27 | NUR ---
SHIFT SUMMARY PT SLEPT A LOT OF THE SHIFT. MEDICATED FOR BACK AND LEG/FEET PAIN PER EMAR X2 THIS SHIFT. IVF INFUSING WITHOUT DIFFICULTY. PT HAS BEEN ORIENTED ALL SHIFT. OXYGEN TURNED DOWN TO 1 LITER THIS EVENING AND PT'S OXYGEN SATURATIN 93%. NOT MUCH APPETITE. ENSURE GIVEN PER REQUEST. NO ACUTE CHANGES THIS TIME. CALL LIGHT IN REACH. WILL MONITOR.
--- NOTE | 2022-03-02 22:17 | NUR ---
1999 Patient is alert and oriented with her usual great humor. Patient to BR with walker and SBA. Pt has chronic diarrhea and does rhodes to the bathroom. Pt is 1.5 L of O2 sating at 94%. Lungs with crackles leroy bases, pt endorses occ productive cough. Patient BP was elevated, Dr. Guevara notified, awaiting new orders. Call light in reach. Will continue to monitor.
--- NOTE | 2022-03-02 22:22 | NUR ---
2200 Patient BP was 153/83 so apresoline not given, BP is below parameters. Will continue to monitor BP.
[2022-03-03 05:15] LABS: BASOPHILS ABSOLUTE AUTO 0.03 K/mm3 (0.00-0.23); BASOPHILS PERCENT AUTO 0 % (0-2); EOSINOPHILS ABSOLUTE AUTO 0.63 K/mm3 (0.00-0.68); EOSINOPHILS PERCENT AUTO 8 % (0-6); Hematocrit 36.3 % (33.0-51.0); Hemoglobin 11.9 g/dL (11.5-16.0); IMMATURE GRAN ABSOLUTE AUTO 0.01 K/mm3 (0.00-0.10); IMMATURE GRAN PERCENT AUTO 0 % (0-1); LYMPHOCYTES ABSOLUTE AUTO 0.94 K/mm3 (0.84-5.20); LYMPHOCYTES PERCENT AUTO 12 % (21-46); MONOCYTES PERCENT AUTO 15 % (4-13); Mean Corpuscular HGB 31.2 pg (26.0-34.0); Mean Corpuscular HGB Conc 32.8 g/dL (31.5-36.5); Mean Corpuscular Volume 95 fL (80-100); Mean Platelet Volume 11.1 fL (9.1-12.4); NEUTROPHILS ABSOLUTE AUTO 5.32 K/mm3 (1.96-9.15); NEUTROPHILS PERCENT AUTO 65 % (41-73); Platelet Count 197 K/mm3 (150-400); RDW Coefficient Variation 13.1 % (11.7-14.2); Red Blood Cell Count 3.81 M/mm3 (3.80-5.20); White Blood Cell Count 8.13 K/mm3 (4.00-11.30)
[2022-03-03 05:26] LABS: Albumin, Blood 2.5 g/dL (3.4-5.0); Anion Gap 5 mmol/L (6-16); Blood Urea Nitrogen 10 mg/dL (8-24); Bun/Creatinine Ratio 10.8 (12.0-20.0); CO2, Blood 29 mmol/L (21-32); Calcium, Blood 8.1 mg/dL (8.5-10.1); Chloride, Blood 108 mmol/L (98-108); Creatinine, Blood 0.92 mg/dL (0.40-1.00); Glomerular Filtration Rate 68 (60-); Glucose, Blood 102 mg/dL (70-99); Magnesium, Blood 2.5 mg/dL (1.6-2.4); Phosphorus, Blood 3.8 mg/dL (2.5-4.9); Potassium, Blood 3.8 mmol/L (3.5-5.5); Sodium, Blood 142 mmol/L (136-145)
--- NOTE | 2022-03-03 06:59 | NUR ---
Rn Summary: Patient is alert and oriented. Pain has improved over the night patrol inspector. Pt has Lupus with generalized pain. Medicated x2 with Snyder 5/325 with good relief. Patient has remained on 1.5 Liters O2. Patient has been up to the BR for loose stools. Immodium given x2. Patient states she has rested fairly well tonight. Call light is in reach, pt calls appropriately.
--- NOTE | 2022-03-03 18:46 | NUR ---
SHIFT SUMMARY PT HAS BEEN ON ROOM AIR ALL SHIFT AND O2 SATURATION HAS BEEN 94%. PT TOOK A SHOWER AND WORKED WITH PHYSICAL THERAPY TODAY. MEDICATED FOR BACK PAIN X1. PT HAS HAD MORE OF AN APPETITE. POWERGLIDE PLACED TO LEFT UPPER ARM. NO ACUTE CHANGES THIS SHIFT. WILL CONTINUE TO MONITOR. CALL LIGHT IN REACH.
--- NOTE | 2022-03-04 03:57 | NUR ---
SHIFT SUMMARY ADMITTED FOR PNEUMONIA/HYPOXIA. FULL CODE. TELEMETRY: NSR @ 60 BPM. PRN IMMODIUM AND PAIN MEDICATION GIVEN THIS SHIFT. STANDBY ASSIST W/FWW- BRP. POWERGLIDE IN LUE. CORTISOL TEST TO BE PERFORMED THIS MORNING. SHE IS HOPEFUL FOR DISCHARGE TODAY. SHE IS A&O X4. ON RA.
[2022-03-04 08:19] LABS: Bun/Creatinine Ratio 11.1 (12.0-20.0); Calcium, Blood 8.7 mg/dL (8.5-10.1); Creatinine, Blood 0.9 mg/dL (0.40-1.00); Potassium, Blood 3.9 mmol/L (3.5-5.5)
[2022-03-04] MEDS ORDERED: HYDCOR10 PO (12:45)
[2022-03-04] MEDS ORDERED: SULTRIDS PO (12:46)
[2022-03-04] MEDS ORDERED: SPIR25 PO (12:46)
--- NOTE | 2022-03-04 13:45 | NUR ---
SUMMARY/DISCHARGE PT DISCHARGED TO HOME, PT VERBALIZED UNDERSTANDING OF DISCHARGE INSTRUCTIONS REGARDING MEDS AND FOLLOW UP, PT TAKEN OUT SAFELY VIA WHEELCHAIR WITH HER DAUGHTER
--- NOTE | 2022-03-04 14:56 | NUR ---
Met [facility] patient to review her medications and symptoms. her right leg is very painfull at times feels she is waling on rocks. She wants a walker reviewed where to get one for [facility]. Reviewed other treatments such as accupuncture. She will update her rhumatologist and her neurologist. We also reviewed fall precautions and redoing her bed height and sensor lights.
== END 2022-03-04 13:05 | disposition home or self-care (01) | DRG 871 ==
LOC: ER 23:53 → MEDS 03-02 03:59
PROVIDERS: Emergency Medicine; Family Medicine; Internal Medicine; ADMIT Internal Medicine
DX: A41.9 Sepsis, unspecified organism (principal); I50.31 Acute diastolic (congestive) heart failure; J96.01 Acute respiratory failure with hypoxia; J69.0 Pneumonitis due to inhalation of food and vomit; D84.9 Immunodeficiency, unspecified; B37.0 Candidal stomatitis; E27.1 Primary adrenocortical insufficiency; Z68.42 Body mass index [BMI] 45.0-49.9, adult; E78.5 Hyperlipidemia, unspecified; I11.0 Hypertensive heart disease with heart failure; E03.9 Hypothyroidism, unspecified; I27.21 Secondary pulmonary arterial hypertension; Z20.822 Contact with and (suspected) exposure to COVID-19; F11.90 Opioid use, unspecified, uncomplicated; T36.95XA Adverse effect of unspecified systemic antibiotic, initial encounter; G62.9 Polyneuropathy, unspecified; Z88.5 Allergy status to narcotic agent; Z88.8 Allergy status to other drugs, medicaments and biological substances; M32.9 Systemic lupus erythematosus, unspecified; Z90.49 Acquired absence of other specified parts of digestive tract; Z98.890 Other specified postprocedural states; Z79.899 Other long term (current) drug therapy
CPT/HCPCS: 0241U; 36415; 36416; 51701; 71045; 80048; 80053; 80069; 80400; 81001; 82533; 83735; 83880; 84145; 85025; 87040; 93005; 93010; 93306; 94664; 94761; 94762; 96365; 97110; 97116; 97162; 99285-25; A9270; J0696; J0834; J2543; J7030; J7050; J7512

== ENCOUNTER → 2022-08-27 | Outpatient (CLI) | payer MEDICARE, OTHER ==
[~2022-08-27] MED LIST changes: +GABAPENTIN600 MG PO; +HYDCOR10 PO; +SULTRIDS PO
[2022-08-27 13:32] LABS: Protein, Urine Quantitative 11.5 mg/dL (0.0-11.9)
[2022-08-27 13:41] LABS: Microalbumin, Urine Quant. <5.000 mg/L (0.000-20.000)
== END | disposition home or self-care (01) ==
LOC: LAB SHORT 06:45 → LAB 06:45
PROVIDERS: Internal Medicine Nephrology
DX: N18.30 Chronic kidney disease, stage 3 unspecified (principal); D63.1 Anemia in chronic kidney disease; N25.81 Secondary hyperparathyroidism of renal origin; E78.00 Pure hypercholesterolemia, unspecified; E55.9 Vitamin D deficiency, unspecified; R76.9 Abnormal immunological finding in serum, unspecified; R94.5 Abnormal results of liver function studies; R94.6 Abnormal results of thyroid function studies
CPT/HCPCS: 81050; 82043; 82570; 84156

== ENCOUNTER 2022-09-03 06:33 | Day surgery (SDC) | payer MEDICARE, OTHER ==
[2022-09-03] VITALS (15 sets, daily range): BP systolic 134–163; BP diastolic 65–103
[~2022-09-03] VITALS: Ht 160 cm; Wt 95.9 kg
[~2022-09-03 06:33] MED LIST changes: +DULO30 PO; -ESTRADIOL0.5 MG PO; +ESTRADIOL0.5 MG VAG
--- NOTE | 2022-09-03 07:29 | NUR ---
Ambulatory in Day Surgery History, Chart, Medications and Allergies reviewed before start of procedure.Lungs clear T/O to Auscultation-DIMINISHED THROUGH OUT. SATS>90% ON R/A. PT DENIES SOB. Patient confirms NPO status and agrees with scheduled surgery. Patient States Post-Procedure ride home has been arranged.
--- NOTE | 2022-09-03 10:19 | NUR ---
PT ARRIVED TO THE ROOM AT 0945. PT REPORTS MILD PAIN AND DESCRIBES PAIN BURNING. SHE ALSO REPORTS FEELING THE URGE TO VOID, GORDON CATH TAKEN OUT BEFORE PT ARRIVED TO THE UNIT. VAGINAL PACKING IN PLACE. SCANT SPOTTING. PT IS ALERT AND ORIENTED. WILL CONTINUE TO MONITOR.
[2022-09-03 11:57] LABS: BASOPHILS ABSOLUTE AUTO 0.02 K/mm3 (0.00-0.23); BASOPHILS PERCENT AUTO 0 % (0-2); EOSINOPHILS ABSOLUTE AUTO 0.01 K/mm3 (0.00-0.68); EOSINOPHILS PERCENT AUTO 0 % (0-6); Hemoglobin 13.2 g/dL (11.5-16.0); IMMATURE GRAN ABSOLUTE AUTO 0.05 K/mm3 (0.00-0.10); IMMATURE GRAN PERCENT AUTO 1 % (0-1); LYMPHOCYTES ABSOLUTE AUTO 0.69 K/mm3 (0.84-5.20); LYMPHOCYTES PERCENT AUTO 8 % (21-46); MONOCYTES PERCENT AUTO 1 % (4-13); Mean Corpuscular HGB 31.9 pg (26.0-34.0); Mean Corpuscular Volume 97 fL (80-100); Mean Platelet Volume 10.4 fL (9.1-12.4); NEUTROPHILS ABSOLUTE AUTO 8.18 K/mm3 (1.96-9.15); NEUTROPHILS PERCENT AUTO 90 % (41-73); Platelet Count 274 K/mm3 (150-400); RDW Coefficient Variation 12.5 % (11.7-14.2); RDW Standard Deviation 44.6 fL (35.1-46.3); Red Blood Cell Count 4.14 M/mm3 (3.80-5.20); White Blood Cell Count 9.05 K/mm3 (4.00-11.30)
[2022-09-03] MEDS ORDERED: HYDR1TAB94 PO (13:49)
--- NOTE | 2022-09-03 15:47 | NUR ---
DISCHARGE PT PROVIDED WITH WRITTEN AND VERBAL DISCHARGE INSTRUCTIONS; PT REPORTED UNDERSTANDING. PAIN MANAGED WITH PO PAIN MEDICATION AT TIME OF DISCHARGE. PT HAVING LIGHT VAGINAL BLEEDING. VAGINAL PACKING WAS REMOVED AT APPROXIMATELY 1410, WITH NO INCREASE IN VAGINAL BLEEDING AFTER PACKING WAS REMOVED. PT WAS ABLE TO AMBULATE PRIOR TO DISCHARGE. SHE TOLERATED PO. PT WAS ESCORTED OUT IN A W/C BY HER GRANDDAUGHTER, SHE DECLINED ASSISTANCE FROM STAFF.
== END 2022-09-03 15:10 | disposition home or self-care (01) ==
LOC: ORSCMMR 06:33 → SURS 10:11 → ORD 10:30 → ORSCMMR 10:30
PROVIDERS: Obstetrics & Gynecology
PROC: 0JQC0ZZ Repair Pelvic Region Subcutaneous Tissue and Fascia, Open Approach (ICD-10-PCS; principal; 2022-09-03 08:00)
DX: N81.6 Rectocele (principal); N95.2 Postmenopausal atrophic vaginitis; I12.9 Hypertensive chronic kidney disease with stage 1 through stage 4 chronic kidney disease, or unspecified chronic kidney disease; N18.9 Chronic kidney disease, unspecified; K21.9 Gastro-esophageal reflux disease without esophagitis; E03.9 Hypothyroidism, unspecified; M32.9 Systemic lupus erythematosus, unspecified; G47.33 Obstructive sleep apnea (adult) (pediatric); M79.7 Fibromyalgia; Z79.899 Other long term (current) drug therapy; E66.9 Obesity, unspecified; Z68.36 Body mass index [BMI] 36.0-36.9, adult
CPT/HCPCS: 36415; 85025; A9270; J1100; J2250; J2405; J2704; J3010; J7120

== ENCOUNTER 2023-09-15 13:39 | Emergency (ER) | payer OTHER ==
[~2023-09-15] VITALS: Ht 160 cm; Wt 102.1 kg
[2023-09-15 14:11] LABS: BASOPHILS ABSOLUTE AUTO 0.07 K/mm3 (0.00-0.23); BASOPHILS PERCENT AUTO 1 % (0-2); EOSINOPHILS PERCENT AUTO 1 % (0-6); Hematocrit 38.3 % (33.0-51.0); Hemoglobin 12.8 g/dL (11.5-16.0); IMMATURE GRAN ABSOLUTE AUTO 0.06 K/mm3 (0.00-0.10); IMMATURE GRAN PERCENT AUTO 0 % (0-1); LYMPHOCYTES ABSOLUTE AUTO 1.51 K/mm3 (0.84-5.20); LYMPHOCYTES PERCENT AUTO 11 % (21-46); MONOCYTES ABSOLUTE AUTO 1.69 K/mm3 (0.16-1.47); MONOCYTES PERCENT AUTO 12 % (4-13); Mean Corpuscular HGB 31.9 pg (26.0-34.0); Mean Corpuscular HGB Conc 33.4 g/dL (31.5-36.5); Mean Corpuscular Volume 96 fL (80-100); Mean Platelet Volume 10.7 fL (9.1-12.4); NEUTROPHILS ABSOLUTE AUTO 10.94 K/mm3 (1.96-9.15); NEUTROPHILS PERCENT AUTO 76 % (41-73); Platelet Count 230 K/mm3 (150-400); RDW Coefficient Variation 12.8 % (11.7-14.2); RDW Standard Deviation 45.1 fL (35.1-46.3); Red Blood Cell Count 4.01 M/mm3 (3.80-5.20); White Blood Cell Count 14.37 K/mm3 (4.00-11.30)
[2023-09-15 14:29] LABS: Albumin, Blood 3.1 g/dL (3.4-5.0); Albumin/Globulin Ratio 0.8 (0.8-1.8); Bilirubin, Total 0.8 mg/dL (0.1-1.0); Bun/Creatinine Ratio 10.9 (12.0-20.0); Creatinine, Blood 1.1 mg/dL (0.40-1.00); Globulin, Blood 3.7 g/dL (2.2-4.0); Potassium, Blood 3.6 mmol/L (3.5-5.5); Total Protein, Blood 6.8 g/dL (6.4-8.2)
[2023-09-15 14:44] LABS: Influenza A, PCR NEGATIVE (NEGATIVE); Influenza B, PCR NEGATIVE (NEGATIVE); Resp Syncytial Virus, PCR NEGATIVE (NEGATIVE); SARS-Cov-2 (COVID-19) PCR, MMC NEGATIVE (NEGATIVE)
[2023-09-15 14:44] LABS: Source, Urine Clean Catch
[2023-09-15 14:49] LABS: Bilirubin, Urine Neg (Neg); Blood, Urine 2+ (Neg); Color, Urine Yellow (P-Yellow); Glucose Qualitative, Urine Neg (Neg); Ketones, Urine Neg (Neg); Leukocyte Esterase, Urine Neg (Neg); Nitrite, Urine Neg (Neg); Protein, Urine 1+ (Neg); Urobilinogen, Urine 1+ (Normal)
[2023-09-15 15:01] LABS: Appearance, Urine Hazy (Clear); Mucus Light (0-Heavy)
[2023-09-15 15:02] LABS: Squamous Epithelial Cells Mod /hpf (Few)
[2023-09-15 15:04] LABS: Amorphous Light (0-Heavy); Bacteria Many /hpf; Red Blood Cells, Urine 0-2 /hpf (0-2); White Blood Cells, Urine 0-2 /hpf (0-5)
[2023-09-15 15:54] VITALS: BP 142/98
[2023-09-15] MEDS ORDERED: MetroNIDAZOLE 500 MG Tab PO ONE (16:45)
[2023-09-15] MEDS ORDERED: Cipro500 MG PO (16:49)
[2023-09-15] MEDS ORDERED: ONDA4ODT MM (16:49)
[2023-09-15] MEDS ORDERED: Flagyl500 MG PO (16:49)
[2023-09-15] MEDS ORDERED: Ondansetron HCl 2 MG / ML 2ML Vial IV ONE (16:50)
[2023-09-15] MEDS ORDERED: Ciprofloxacin 500 MG Tab PO ONE (16:50)
== END 2023-09-15 17:42 | disposition home or self-care (01) ==
LOC: ER 13:39
PROVIDERS: Student in an Organized Health Care Education/Training Program
DX: K57.32 Diverticulitis of large intestine without perforation or abscess without bleeding (principal); I10 Essential (primary) hypertension; E03.9 Hypothyroidism, unspecified; Z88.5 Allergy status to narcotic agent; Z88.1 Allergy status to other antibiotic agents; Z88.8 Allergy status to other drugs, medicaments and biological substances; Z79.899 Other long term (current) drug therapy
CPT/HCPCS: 0241U; 74177; 80053; 81001; 83690; 85025; 87086; 93005; 93010; 96374-59; 99284-25; A9270; J2405; Q9967

== ENCOUNTER 2023-11-29 07:30 | Emergency (ER) | payer OTHER ==
[~2023-11-29] VITALS: Ht 157.5 cm; Wt 102.1 kg
[2023-11-29] MEDS ORDERED: Diphth,Pertuss(Acell),Tet Vac 0.5 ML VIAL IM ONE (08:15)
[2023-11-29] MEDS ORDERED: HYDROmorphone HCl/Pf 1MG SYR IV ONE (08:35)
[2023-11-29] MEDS ORDERED: NS 1,000 ML IV SCH (08:35)
[2023-11-29] MEDS ORDERED: Ondansetron HCl 2 MG / ML 2ML Vial IV ONE (08:35)
[2023-11-29] MEDS ORDERED: LIOT5 PO (09:08)
[2023-11-29 09:19] LABS: BASOPHILS ABSOLUTE AUTO 0.05 K/mm3 (0.00-0.23); BASOPHILS PERCENT AUTO 1 % (0-2); EOSINOPHILS ABSOLUTE AUTO 0.14 K/mm3 (0.00-0.68); EOSINOPHILS PERCENT AUTO 2 % (0-6); Hematocrit 41.4 % (33.0-51.0); Hemoglobin 13.8 g/dL (11.5-16.0); IMMATURE GRAN ABSOLUTE AUTO 0.02 K/mm3 (0.00-0.10); IMMATURE GRAN PERCENT AUTO 0 % (0-1); LYMPHOCYTES ABSOLUTE AUTO 1.44 K/mm3 (0.84-5.20); LYMPHOCYTES PERCENT AUTO 18 % (21-46); MONOCYTES ABSOLUTE AUTO 0.66 K/mm3 (0.16-1.47); MONOCYTES PERCENT AUTO 8 % (4-13); Mean Corpuscular HGB 32.1 pg (26.0-34.0); Mean Corpuscular HGB Conc 33.3 g/dL (31.5-36.5); Mean Corpuscular Volume 96 fL (80-100); Mean Platelet Volume 11.1 fL (9.1-12.4); NEUTROPHILS ABSOLUTE AUTO 5.76 K/mm3 (1.96-9.15); NEUTROPHILS PERCENT AUTO 72 % (41-73); Platelet Count 281 K/mm3 (150-400); RDW Coefficient Variation 12.4 % (11.7-14.2); RDW Standard Deviation 43.4 fL (35.1-46.3); White Blood Cell Count 8.07 K/mm3 (4.00-11.30)
[2023-11-29 09:32] LABS: Albumin, Blood 3.6 g/dL (3.4-5.0); Bilirubin, Total 0.2 mg/dL (0.1-1.0); Bun/Creatinine Ratio 12.4 (12.0-20.0); Calcium, Blood 9.2 mg/dL (8.5-10.1); Creatinine, Blood 1.13 mg/dL (0.40-1.00); Globulin, Blood 3.5 g/dL (2.2-4.0); Potassium, Blood 4.2 mmol/L (3.5-5.5); Total Protein, Blood 7.1 g/dL (6.4-8.2)
[2023-11-29 09:39] LABS: Source, Urine Clean Catch
[2023-11-29 09:41] LABS: Appearance, Urine Clear (Clear); Bilirubin, Urine Neg (Neg); Blood, Urine Neg (Neg); Color, Urine Yellow (P-Yellow); Glucose Qualitative, Urine Neg (Neg); Ketones, Urine Neg (Neg); Leukocyte Esterase, Urine Neg (Neg); Nitrite, Urine Neg (Neg); Protein, Urine Neg (Neg); Urobilinogen, Urine NORM (Normal)
[2023-11-29] MEDS ORDERED: OxyCODONE 5 mg/Acetamin 325 mg TABLET PO ONE (12:20)
[2023-11-29 13:30] VITALS: BP 153/83
[2023-11-29] MEDS ORDERED: Percocet 5-3251 EACH PO (14:46)
== END 2023-11-29 15:19 | disposition home or self-care (01) ==
LOC: ER 07:30
PROVIDERS: Physician Assistant
DX: M54.50 Low back pain, unspecified (principal); R10.32 Left lower quadrant pain; I10 Essential (primary) hypertension; E03.9 Hypothyroidism, unspecified; Z79.899 Other long term (current) drug therapy; Z79.818 Long term (current) use of other agents affecting estrogen receptors and estrogen levels; Z88.6 Allergy status to analgesic agent; Z88.1 Allergy status to other antibiotic agents; Z88.5 Allergy status to narcotic agent; Z88.8 Allergy status to other drugs, medicaments and biological substances
CPT/HCPCS: 51798; 72148; 74177; 80053; 81003; 83690; 85025; 90471; 90715; 96374-59; 96375; 99284-25; A9270; J1170; J2405; J7030; Q9967

== ENCOUNTER 2024-05-04 08:41 | Emergency (ER) | payer OTHER ==
[~2024-05-04] VITALS: Ht 160 cm; Wt 99.8 kg
[~2024-05-04 08:41] MED LIST changes: +LIOT5 PO; +Percocet 5-3251 EACH PO
[2024-05-04 09:36] VITALS: BP 114/89
[2024-05-04] MEDS ORDERED: CefTRIAXone Sodium 1,000 MG in NS 100 ML IV ONE (09:45)
[2024-05-04 09:53] LABS: BASOPHILS ABSOLUTE AUTO 0.08 K/mm3 (0.00-0.23); BASOPHILS PERCENT AUTO 1 % (0-2); EOSINOPHILS ABSOLUTE AUTO 0.23 K/mm3 (0.00-0.68); EOSINOPHILS PERCENT AUTO 3 % (0-6); Hematocrit 38.8 % (33.0-51.0); Hemoglobin 13.2 g/dL (11.5-16.0); IMMATURE GRAN ABSOLUTE AUTO 0.02 K/mm3 (0.00-0.10); IMMATURE GRAN PERCENT AUTO 0 % (0-1); LYMPHOCYTES ABSOLUTE AUTO 1.26 K/mm3 (0.84-5.20); LYMPHOCYTES PERCENT AUTO 18 % (21-46); MONOCYTES ABSOLUTE AUTO 0.99 K/mm3 (0.16-1.47); MONOCYTES PERCENT AUTO 14 % (4-13); Mean Corpuscular HGB 32.1 pg (26.0-34.0); Mean Corpuscular Volume 94 fL (80-100); Mean Platelet Volume 10.2 fL (9.1-12.4); NEUTROPHILS PERCENT AUTO 63 % (41-73); Platelet Count 245 K/mm3 (150-400); RDW Coefficient Variation 12.7 % (11.7-14.2); RDW Standard Deviation 43.9 fL (35.1-46.3); Red Blood Cell Count 4.11 M/mm3 (3.80-5.20); White Blood Cell Count 6.88 K/mm3 (4.00-11.30)
[2024-05-04 10:16] LABS: Albumin, Blood 3.4 g/dL (3.4-5.0); Albumin/Globulin Ratio 0.9 (0.8-1.8); Bilirubin, Total 0.3 mg/dL (0.1-1.0); Bun/Creatinine Ratio 11.7 (12.0-20.0); Calcium, Blood 9.2 mg/dL (8.5-10.1); Creatinine, Blood 1.37 mg/dL (0.40-1.00); Globulin, Blood 3.7 g/dL (2.2-4.0); Potassium, Blood 4.1 mmol/L (3.5-5.5); Total Protein, Blood 7.1 g/dL (6.4-8.2)
[2024-05-04 10:27] LABS: Influenza A, PCR NEGATIVE (NEGATIVE); Influenza B, PCR NEGATIVE (NEGATIVE); Resp Syncytial Virus, PCR NEGATIVE (NEGATIVE); SARS-Cov-2 (COVID-19) PCR, MMC NEGATIVE (NEGATIVE)
[2024-05-04] MEDS ORDERED: CEFD300 PO (11:58)
[2024-05-04] MEDS ORDERED: HYDROcodone 10-APAP 325 TAB PO ONE (12:00)
== END 2024-05-04 12:38 | disposition home or self-care (01) ==
LOC: ER 08:41
PROVIDERS: Emergency Medicine
DX: L03.115 Cellulitis of right lower limb (principal); R05.9 Cough, unspecified; E11.9 Type 2 diabetes mellitus without complications; I11.0 Hypertensive heart disease with heart failure; I50.30 Unspecified diastolic (congestive) heart failure; E03.9 Hypothyroidism, unspecified; E78.5 Hyperlipidemia, unspecified; J45.50 Severe persistent asthma, uncomplicated; Z88.1 Allergy status to other antibiotic agents; Z88.6 Allergy status to analgesic agent; Z88.5 Allergy status to narcotic agent; Z88.8 Allergy status to other drugs, medicaments and biological substances; Z79.890 Hormone replacement therapy; Z79.899 Other long term (current) drug therapy
CPT/HCPCS: 0241U; 36415; 71046; 73590; 80053; 83605; 83880; 85025; 87040; 93005; 93010; 96365; 99284-25; A9270; J0696

== ENCOUNTER 2024-05-22 13:46 | Day surgery (SDC) | payer OTHER ==
[~2024-05-22] VITALS: Ht 157.5 cm; Wt 100.3 kg
[~2024-05-22 13:46] MED LIST changes: +Atropine Sulfate 0.1 MG/ML 10ML SYR ONE; +CEFD300 PO; +Glycopyrrolate 0.2 MG/ML 1MLVIAL ONE; +Lactated Ringer's 1,000 ML IV ONE; +Lidocaine 2% 5 ML SDV ONE; +Lidocaine HCl/Pf 1% 5 ML VIAL ONE; +Methylene Blue 1% 100 MG/10 ML VIAL ONE; +Ondansetron HCl 2 MG / ML 2ML Vial ONE; +ePHEDrine Sulfate 50 MG/ML 1ML Injection ONE
[2024-05-22] MEDS ORDERED: MULVITA (14:13)
[2024-05-22] MEDS ORDERED: Vitamin D1000 UNI1 (14:13)
[2024-05-22] MEDS ORDERED: LUMIFY2.5 ML (14:14)
[2024-05-22] MEDS ORDERED: Ondansetron HCl 2 MG / ML 2ML Vial ONE (14:33)
[2024-05-22] MEDS ORDERED: Lactated Ringer's 1,000 ML IV ONE (14:40)
[2024-05-22] MEDS ORDERED: propofoL 50 ML IV ONE ×2 (14:51→15:13)
--- NOTE | 2024-05-22 15:04 | NUR ---
05/22/24 1504 Sena Whitaker 4MG IV ZOFRAN GIVEN AT [address] WILKINS[address]
[2024-05-22 16:36] VITALS: BP 123/86
== END 2024-05-22 16:20 | disposition home or self-care (01) ==
LOC: ORSCSDS 13:46
PROVIDERS: Internal Medicine Gastroenterology
PROC: 0DBN8ZX Excision of Sigmoid Colon, Via Natural or Artificial Opening Endoscopic, Diagnostic (ICD-10-PCS; principal; 2024-05-22 15:00)
PROC: 0DBE8ZX Excision of Large Intestine, Via Natural or Artificial Opening Endoscopic, Diagnostic (ICD-10-PCS; principal; 2024-05-22 15:00)
DX: R19.7 Diarrhea, unspecified (principal); Z86.0100 Personal history of colon polyps, unspecified; K57.30 Diverticulosis of large intestine without perforation or abscess without bleeding; E78.5 Hyperlipidemia, unspecified; M32.9 Systemic lupus erythematosus, unspecified; I10 Essential (primary) hypertension; G47.33 Obstructive sleep apnea (adult) (pediatric); I12.9 Hypertensive chronic kidney disease with stage 1 through stage 4 chronic kidney disease, or unspecified chronic kidney disease; N18.9 Chronic kidney disease, unspecified; K21.9 Gastro-esophageal reflux disease without esophagitis; E66.01 Morbid (severe) obesity due to excess calories; Z68.41 Body mass index [BMI] 40.0-44.9, adult; Z79.899 Other long term (current) drug therapy
CPT/HCPCS: 88305; J0461; J2003; J2405; J2704; J7120; Q9968

== ENCOUNTER 2025-02-13 07:28 | Day surgery (SDC) | payer OTHER ==
[~2025-02-13] VITALS: Ht 157.5 cm; Wt 104.1 kg
[~2025-02-13 07:28] MED LIST changes: -Atropine Sulfate 0.1 MG/ML 10ML SYR ONE; +Balanced Salt Epinephrine Irrigation Solution 500 mL IR SCH; +EFFEXOR XR37.5 MG PO; -Glycopyrrolate 0.2 MG/ML 1MLVIAL ONE; +LUMIFY2.5 ML; -Lactated Ringer's 1,000 ML IV ONE; -Lidocaine 2% 5 ML SDV ONE; -Lidocaine HCl/Pf 1% 5 ML VIAL ONE; +MULVITA; -Methylene Blue 1% 100 MG/10 ML VIAL ONE; +Moxifloxacin HCL 0.5 MG/0.1 ML 0.4MLSYR LEFTEYE SCH; +Ondansetron 4 MG SoluTab MM PRN; -Ondansetron HCl 2 MG / ML 2ML Vial ONE; +PHENYLEPHRINE\\TROPICAMIDE\\TETRACAINE OPHTHALMIC DILATING SOLN LEFTEYE PRN; +Povidone-Iodine 450 DROP/30 ML Solution LEFTEYE SCH; +Povidone-Iodine 450 DROP/30 ML Solution ONE; +Tetracaine HCl/Pf 0.5% Opth Soln 4 ml ONE; +Vitamin D1000 UNI1; -ePHEDrine Sulfate 50 MG/ML 1ML Injection ONE
--- NOTE | 2025-02-13 08:10 | NUR ---
02/13/25 0810 Alondra Conklin 0809: 10 MG PO VALIUM GIVEN PER ORDERS. PULSE OX ON FINGER, CALL LIGHT IN HAND. INITIAL ANXIETY 06/26
[2025-02-13] MEDS ORDERED: Tetracaine HCl 0.5% Opth Soln 15 ml LEFTEYE ONE (08:36)
--- NOTE | 2025-02-13 08:40 | NUR ---
02/13/25 0840 Benita Burnett N 121/72 98% 10L BLOW BY O2 59 18
[2025-02-13 09:00] VITALS: BP 128/69
== END 2025-02-13 09:06 | disposition home or self-care (01) ==
LOC: ORSCSDS 07:28
PROVIDERS: Student in an Organized Health Care Education/Training Program
PROC: 08RK3JZ Replacement of Left Lens with Synthetic Substitute, Percutaneous Approach (ICD-10-PCS; principal; 2025-02-13 09:00)
DX: H25.812 Combined forms of age-related cataract, left eye (principal); Z96.1 Presence of intraocular lens; I10 Essential (primary) hypertension; E78.5 Hyperlipidemia, unspecified; M79.7 Fibromyalgia; M32.9 Systemic lupus erythematosus, unspecified; E07.9 Disorder of thyroid, unspecified; Z79.899 Other long term (current) drug therapy
CPT/HCPCS: A9270; J2003; V2632

== ENCOUNTER 2025-05-07 15:50 | Emergency (ER) | payer OTHER ==
[~2025-05-07] VITALS: Ht 154.9 cm; Wt 99.8 kg
[~2025-05-07 15:50] MED LIST changes: +AMOCLA875 PO; -Balanced Salt Epinephrine Irrigation Solution 500 mL IR SCH; -Moxifloxacin HCL 0.5 MG/0.1 ML 0.4MLSYR LEFTEYE SCH; +ONDA4 PO; -Ondansetron 4 MG SoluTab MM PRN; -PHENYLEPHRINE\\TROPICAMIDE\\TETRACAINE OPHTHALMIC DILATING SOLN LEFTEYE PRN; -Povidone-Iodine 450 DROP/30 ML Solution LEFTEYE SCH; -Povidone-Iodine 450 DROP/30 ML Solution ONE; -Tetracaine HCl/Pf 0.5% Opth Soln 4 ml ONE
[2025-05-07 17:09] LABS: BASOPHILS ABSOLUTE AUTO 0.05 K/mm3 (0.00-0.23); BASOPHILS PERCENT AUTO 1 % (0-2); EOSINOPHILS ABSOLUTE AUTO 0.30 K/mm3 (0.00-0.68); EOSINOPHILS PERCENT AUTO 4 % (0-6); Hematocrit 41.3 % (33.0-51.0); Hemoglobin 13.5 g/dL (11.5-16.0); IMMATURE GRAN ABSOLUTE AUTO 0.03 K/mm3 (0.00-0.10); IMMATURE GRAN PERCENT AUTO 0 % (0-1); LYMPHOCYTES ABSOLUTE AUTO 1.90 K/mm3 (0.84-5.20); LYMPHOCYTES PERCENT AUTO 27 % (21-46); MONOCYTES ABSOLUTE AUTO 0.70 K/mm3 (0.16-1.47); MONOCYTES PERCENT AUTO 10 % (4-13); Mean Corpuscular HGB Conc 32.7 g/dL (31.5-36.5); Mean Corpuscular Volume 95 fL (80-100); NEUTROPHILS ABSOLUTE AUTO 4.14 K/mm3 (1.96-9.15); NEUTROPHILS PERCENT AUTO 58 % (41-73); NRBC ABSOLUTE 0.00 K/mm3 (0.00-0.02); NRBC Auto 0.0 /100 WBC (0.0-0.2); Platelet Count 238 K/mm3 (150-400); RDW Coefficient Variation 11.9 % (11.7-14.2); RDW Standard Deviation 41.9 fL (35.1-46.3)
[2025-05-07 17:46] LABS: Alanine Aminotransfer (ALT/SGP 36.0 U/L (12-78); Albumin, Blood 3.6 g/dL (3.4-5.0); Albumin/Globulin Ratio 1.0 (0.8-1.8); Anion Gap 9.0 mmol/L (3-11); Aspartate Aminotrans (AST/SGOT 33.0 U/L (12-37); Bilirubin, Total 0.3 mg/dL (0.1-1.0); Blood Urea Nitrogen 11.0 mg/dL (8-24); CO2, Blood 28.0 mmol/L (21-32); Calcium, Blood 8.8 mg/dL (8.5-10.1); Chloride, Blood 104.0 mmol/L (98-108); Creatinine, Blood 1.47 mg/dL (0.40-1.00); Globulin, Blood 3.5 g/dL (2.2-4.0); Glucose, Blood 86.0 mg/dL (70-99); Potassium, Blood 3.8 mmol/L (3.5-5.5); Sodium, Blood 137.0 mmol/L (136-145); Total Protein, Blood 7.1 g/dL (6.4-8.2)
[2025-05-07 18:53] VITALS: BP 160/88
== END 2025-05-07 19:09 | disposition home or self-care (01) ==
LOC: ER 15:50
PROVIDERS: Emergency Medicine
DX: K57.92 Diverticulitis of intestine, part unspecified, without perforation or abscess without bleeding (principal); Z59.6 Low income; Z59.89 Other problems related to housing and economic circumstances
CPT/HCPCS: 74018; 80053; 83690; 85025; 99284-25